=== PATIENT | male | born 1940 | race Caucasian/White ===

== ENCOUNTER 2019-08-27 09:06 | Outpatient (RCR) | payer MEDICARE, SELFPAY ==
--- NOTE | 2019-08-27 10:29 | PTOPEVAL ---
Thank you for referring this patient to [facility]. Please review, sign, date and return this plan of care JER. I agree with and certify that the following plan of care is medically necessary. Referring Physician Date Admitting Provider: Attending Provider: Marissa Mays MD Referring Provider: *PT Outpatient Evaluation Start: 08/27/19 10:01 Freq: Status: Active Protocol: Document 08/27/19 10:01 DAMIR (Rec: 08/27/19 10:24 [id number]) Therapy Assessment Status Assessment Status Assessment Status Evaluation Evaluation Information Problem Diagnosis DJD neck/neck pain Onset 08/06/19 Subjective Information Pt. reports he woke with neck Query Text:As Reported By Patient/ pain about 3 weeks ago. He Family reports worst pain with turning the head to the right. He reports no neck problems prior to the past 3 weeks. He states that pain is most notable with moving around through the day. He reports that his goal is to decrease his neck pain with movement. Diagnostic Tests X-Rays For This Problem Yes Prior Level of Function Activity Level (Last 3 Months) Hand Dominance Right Activity of Daily Living Ability Independent Indoor/Home Mobility Independent Community Mobility Independent Stairs Ability Independent Functional Cognition (Planning, Shopping Independent , Taking Medications) Cooking Yes Cleaning Yes Laundry Yes Shopping Yes Driving Yes Pain Assessment Pain Scale Pain Scale Used Numeric (1 - 10) Self Report Pain Assessment Neck Reported Pain Level 9 Pain Description Aching,Sharp Other Pain Aggravating Factors turning the head especially to the right Pain Relief Interventions Used By Inactivity/Rest,Medication Patient Pain Score Pain Score 9: Self Report Cervical and Lumbar ROM Cervical ROM Cervical Flexion (0-60) 55 Query Text:Active in Degrees Cervical Extension (0-70) 35 Query Text:Active in Degrees Cervical Lateral Flexion Right (0-50) 16 Query Text:Active in Degrees Cervical Lateral Flexion Left (0-50) 15 Query Text:Active in Degrees Cervical Rotation Right (0-90) 45 Query Text:Active in Degrees Cervical Rotation Left (0-90)
== END 2019-10-04 17:59 | disposition home or self-care (01) ==
LOC: CHSPT 09:06
PROVIDERS: Visit Provider Internal Medicine
DX: M54.2 Cervicalgia (principal); M47.892 Other spondylosis, cervical region
CPT/HCPCS: 97014; 97110; 97140; 97161; G0283

== ENCOUNTER 2019-10-16 09:56 | Outpatient (RCR) | payer SELFPAY | END 2020-01-11 10:20 | disposition home or self-care (01) | LOC: CHSCPRIII 09:56 | PROVIDERS: PCP Internal Medicine | DX: J44.9 Chronic obstructive pulmonary disease, unspecified (principal) | CPT/HCPCS: 99199 ==

== ENCOUNTER 2019-10-23 17:52 | Inpatient (IN) | payer MEDICARE, SELFPAY ==
[2019-10-23] VITALS (7 sets, daily range): BP systolic 130–159; BP diastolic 47–79; PULSE 108–130; RESP 17–28; TEMP 36.6–37.2; O2SAT 93–100
--- NOTE | ~2019-10-23 | CT_ITS ---
EXAMINATION: CTA chest DATE: 10/25/2019 13:54 INDICATION: Shortness of breath TECHNIQUE: Computed tomographic angiography (CTA) of the chest was performed without and with 100 mL Omnipque-350 intravenous contrast. Maximum intensity projection 3D-reconstructions of the aorta and o ther arteries were constructed by the technologist on a separate workstation. The dose-length product (DLP) was 726.79 mGy-cm. Automated exposure control and iterative reconstruction technique were empl oyed. COMPARISON: 11/24/2018. FINDINGS: The pulmonary arteries are well-opacified. No pulmonary embolism is identified. The lungs a re hyperinflated. There is severe emphysema. There are areas of mucous plugging in the lower lobes. A lso noted is mild bronchial wall thickening in the dependent portions of the lower lobes. A small yazan unt of mucus is seen in the distal trachea and left and right mainstem bronchi. There is no pleural e ffusion or pneumothorax. No pathologically enlarged thoracic lymph nodes are identified. The heart si ze is normal. There is calcified atherosclerosis of the aorta and coronary arteries. Severe lumbar an d cervical spondylosis are noted. There is a stable soft tissue density mass of the left adrenal glan d, consistent with an adenoma. IMPRESSION: 1. No pulmonary embolism. 2. Findings consistent with chronic infection in the lower lobes. 3. Severe emphysema. Reviewed, dictated and finalized at location A. IATIVE CARE SPECIALIST
--- NOTE | ~2019-10-23 | XR_ITS ---
EXAMINATION: XR chest 1V portable DATE: 10/23/2019 18:20 INDICATION: Respiratory failure. Shortness of breath. TECHNIQUE: frontal view of the chest was obtained on 2 radiographs. COMPARISON: Chest radiograph dated 10/10/[address] dated 11/24/2018 FINDINGS: Unchanged mild biapical pleural-parenchymal scarring. Hyperexpansion of the lungs with increased luce ncy and architectural distortion most prominent in the right lower lung zone consistent with emphysem a. Unchanged [id number] opacities at the left lung base consistent with atelectasis/scarring. No new airspace opacities, pulmonary edema, pleural effusion or pneumothorax. The cardiomediastinal silhouette is normal. Atherosclerotic aorta. IMPRESSION: 1. Emphysema with unchanged scarring at the bilateral apices and at the left lung base. Reviewed, dictated and finalized at location A. KBOOK STITCHING MACHINE OPERATOR IMPRESSION: 1. Emphysema with unchanged scarring at the bilateral apices and at the left shlomo ng base.
--- NOTE | ~2019-10-23 | XR_ITS ---
EXAMINATION: XR chest 1V portable DATE: 10/27/2019 09:46 INDICATION: Respiratory failure. Chronic obstructive pulmonary disease. TECHNIQUE: A single frontal view of the chest was obtained on 3 radiographs. COMPARISON: Chest single view 10/23/2019, chest CT 10/25/2019 FINDINGS: The lungs are hyperexpanded with lucencies and chronic interstitial opacities, consistent w ith emphysema. No pleural effusion or pneumothorax. The heart size is normal. IMPRESSION: 1. Emphysema. Reviewed, dictated and finalized at location A. WINDER IMPRESSION: 1. Emphysema.
--- NOTE | ~2019-10-23 | US_ITS ---
EXAMINATION: US carotid duplex BI DATE: 10/25/2019 11:19 INDICATION: Left carotid bruit. TECHNIQUE: Grayscale, color Doppler, and pulsed Doppler images of the cervical carotid arteries were obtained. The degree of vessel stenosis is placed in one of the following categories: normal, <50%, 5 0-69%, >=70% but less than near-occlusion, near-occlusion, or total occlusion. Note that percent sten osis relative to normal distal artery lumen diameter is indirectly measured from velocity measurement s as described by Kendrick, et al. Radiology 2003; 229:340-346. COMPARISON: Ultrasound 01/05/2017 FINDINGS: RIGHT: The right common carotid artery (CCA) peak systolic velocity (PSV) is 116 cm/s. The right internal ca rotid artery (ICA) PSV is 137 cm/s. The right ICA end-diastolic velocity (EDV) is 41 cm/s. The right ICA/CCA PSV ratio is 1.2. Grayscale and color Doppler images yield an estimate of <50% diameter reduc tion from plaque in the ICA. There is antegrade flow in the right vertebral artery. LEFT: The left CCA PSV is 106 cm/s. The left ICA PSV is 176 cm/s. The left ICA EDV is 29 cm/s. The left ICA /CCA PSV ratio is 1.7. Grayscale and color Doppler images yield an estimate of <50% diameter reductio n from plaque in the ICA. There is antegrade flow in the left vertebral artery. IMPRESSION: 1. <50% stenosis in the right internal carotid artery. 2. <50% stenosis in the left internal carotid artery. Reviewed, dictated and finalized at location A. SPOOLER
--- NOTE | 2019-10-23 18:06 | ECG_ITS ---
Measurements Intervals [place] Rate: 127 P: 87 GA: 154 QRS: 93 QRSD: 101 T: 66 QT: 270 QTc: 393 Interpretive Statements SINUS TACHYCARDIA VENTRICULAR PREMATURE COMPLEX RIGHT AXIS DEVIATION DELAYED PRECORDIAL R/S TRANSITION BASELINE ARTIFACT- I, II, III, AVR, AVL, AVF, V1-V6 ABNORMAL ECG Electronically Signed On 10-24-2019 8:07:59 NETWORK TECHNICIAN by Nicolas Wu D.O.
[2019-10-23] MEDS: methylPREDNISolone SOD SUCC 125 MG VIAL 60 MG IV PUSH (18:14)
[2019-10-23] MEDS: IPRATROPIUM BR 0.02% INH SOLN 0.5 MG/2.5 ML VIAL INHALATION (18:14)
--- NOTE | 2019-10-23 18:24 | ED.SOB ---
HPI - SOB/Dyspnea General Chief Complaint: Shortness of Breath/Dyspnea Stated Complaint: ambulance Time Seen by Provider: 10/23/19 17:55 Source: patient and EMS Mode of arrival: ambulatory Limitations: no limitations History of Present Illness HPI Narrative: 79-year-old man with a history of COPD comes in today complaining of worsening shortness breath over last for 3 days. he denies any accompanying illness but noticed an onset to his increasing short of breath. His physician called in some oral antibiotics. He has had no vomiting, diarrhea, fever, sputum production, or syncope. He states that he has got some tightness in his chest that goes to his neck but does not radiate to either of his arms. He states his last admission for lung illness was in 2018. MD elicited complaint: shortness of breath and cough Pertinent past history: COPD Onset (ago): day(s) (3) Timing: constant and progressively worsening Severity: severe Exacerbating factors: lying flat Relieving factors: upright position Known history of: COPD Associated symptoms: chest pain ( tightness ), wheezing and orthopnea Treatment prior to arrival: oxygen and bronchodilator Related Data Home oxygen amount: 2 liters Home Medications Medication Instructions Recorded Confirmed albuterol sulfate 2 puff INHALATION PRN 10/23/19 10/23/19 cefdinir 300 mg PO BID 10/23/19 10/23/19 celecoxib 200 mg PO DAILY 10/23/19 10/23/19 furosemide 40 mg PO DAILY 10/23/19 10/23/19 lisinopril-hydrochlorothiazide 0.5 tablet PO DAILY 10/23/19 10/23/19 lovastatin 20 mg PO HS 10/23/19 10/23/19 omeprazole 20 mg PO DAILY 10/23/19 10/23/19 sildenafil 20 mg PO TID 10/23/19 10/23/19 zolpidem 10 mg PO DAILY 10/23/19 10/23/19 Allergies Allergy/AdvReac Type Severity Reaction Status Date / Time No Known Allergies Allergy Verified 10/23/19 18:07 Review of Systems Constitutional: Constitutional: Denies chills, Denies fever(s) and Denies weakness Eyes: Eyes: Denies change in vision and Denies photophobia ENT: Denies dysphagia, Denies nasal congestion and Denies sore throat Cardiovascular: Cardiovascular: Reports as per HPI, Reports chest pain (Tightness radiating to his neck) and Reports radiating jaw, neck or arm pain Respiratory: Respiratory: Reports as per HPI, Reports chest congestion, Reports cough, Reports dyspnea and Reports wheezing Gastrointestinal: Gastrointestinal: Denies abdominal pain, Denies diarrhea, Denies nausea and Denies vomiting Genitourinary: Genitourinary: Denies dysuria and Denies urinary frequency Musculoskeletal: Musculoskeletal: Denies back pain, Denies arthralgias, Denies joint swelling and Denies muscle cramps Integumentary/Breasts: Skin/Breast: Denies pruritus, Denies erythema and Denies rash Neurologic: Denies vertigo, Denies dizziness and Denies syncope Psychiatric: Psychiatric: Denies anxiety and Denies depression Endocrine: Endocrine: Denies polydipsia and Denies polyuria Hematologic/Lymphatic: Hematologic/Lymphatic: Denies easy bleeding and Denies easy bruising Allergic/Immunologic: Allergic/Immunologic: Denies lip swelling and Denies wheezing PMFSH Past Medical History Medical History CHF (congestive heart failure) COPD (chronic obstructive pulmonary disease) GERD (gastroesophageal reflux disease) HTN (hypertension) Hyperlipidemia Social History Social History Smoking status: Former smoker Alcohol intake: never Substance use: never Living arrangements: with family Occupation/Education: retired Exam Const: General: alert Nutritional Appearance: thin Orientation/consciousness: patient oriented x3 Limitations: no limitations Other: Mod-severe acute distress HENMT: Ears: TM's normal bilaterally and EAC's normal Mouth: Yes Normal oral and palatal mucosa present, Yes moist mucous membranes and Yes dry mucous membrane
[2019-10-23 18:53] LABS: Oxygen Content ABG 19.1 %vol (16.0-22.0); Oxyhemoglobin 94.8 % (94-100)
[2019-10-23 18:53] LABS: Basophils Absolute Auto 0.02 K/mm3 (0.00-0.10); Basophils Percent Auto 0.3 % (0.0-1.0); Eosinophils Absolute Auto 0.02 K/mm3 (0.02-0.50); Eosinophils Percent Auto 0.3 % (1.0-6.0); Hemoglobin 14.2 g/dL (12.4-15.3); Immature Granulocyte Absolute 0.01 K/mm3 (0.00-0.00); Immature Granulocyte Percent A 0.1 % (0.0-0.0); Lymphocytes Absolute Auto 0.52 K/mm3 (1.10-4.50); Lymphocytes Percent Auto 7.2 % (18.0-42.0); Mean Corpuscular Hemoglobin 31.2 pg (27.0-31.0); Mean Corpuscular Volume 94.5 fL (78.0-102.0); Mean Platelet Volume 10.3 fl (8.7-11.0); Monocytes Absolute Auto 0.58 K/mm3 (0.10-0.90); Monocytes Percent Auto 8.1 % (2.0-11.0); Platelet Count Result 147 K/mm3 (150-420); Red Blood Count 4.55 M/mm3 (4.70-6.10); Red Cell Distribution Width 11.9 % (11.6-14.4); White Blood Count 7.2 K/mm3 (4.8-10.8)
[2019-10-23 18:54] LABS: Base Excess ABG 2.6 mmol/L (0-2); Oxygen Saturation ABG 95.8 % (95-97); PCO2 ABG 57.8 mmHg (35-45); PO2 ABG 82.7 mmHg (75-85); Total Hemoglobin 14.3 g/dL; pH ABG 7.33 (7.35-7.45)
[2019-10-23 18:55] LABS: Device NASAL CANNULA; Site Drawn RIGHT BRACHIAL
[2019-10-23 19:24] LABS: Alanine Aminotransferase 24 U/L (16-63); Albumin Level 4.1 g/dL (3.4-5.0); Alkaline Phosphatase 81 U/L (46-116); Anion Gap 10.8 mmol/L (7-16); Aspartate Amino Transferase 29 U/L (15-37); Bilirubin,Total 0.4 mg/dL (0.00-1.00); Blood Urea Nitrogen 15 mg/dL (7-18); Calcium 8.9 mg/dL (8.5-10.1); Carbon Dioxide 37 mmol/L (21-32); Chloride 90 mmol/L (98-108); Estimated CRCL calculation 47 ml/min; Estimated Glomerular Filt Rate > 60; Glucose 130 mg/dL (70-99); Osmolality Calculated 280 mOsm/kg (285-295); Potassium 3.8 mmol/L (3.5-5.1); Sodium 134 mmol/L (136-145); Total Protein 7.9 g/dL (6.4-8.2)
[2019-10-23 19:26] LABS: Troponin I < 0.02 ng/mL (0.00-0.056)
[2019-10-23 19:30] LABS: Partial Thromboplastin Time 32.9 SEC (22.3-31.6); Prothrombin Time 10.7 Seconds (9.64-11.0)
[2019-10-23 19:33] LABS: D Dimer 0.56 mg/L (0.19-0.50)
[2019-10-23 19:37] LABS: Influenza Control Valid (Valid)
[2019-10-23 19:40] LABS: BNP 15.8 pg/mL (0-100)
--- NOTE | 2019-10-23 20:25 | PC.NURSE ---
RN REQUESTED OBS BED AT THIS TIME. ROOM 208 PROVIDED. REGISTRATION NOTIFIED.
--- NOTE | 2019-10-23 20:32 | PC.NURSE ---
RN ATTEMPTED TO CALL REPORT. ACCEPTING RN NOT AVAILABLE.
--- NOTE | 2019-10-23 20:59 | PC.NURSE ---
LA, MOE RN, INFORMED OF THE NEED FOR URINE SAMPLE. LABELED URINE CUP BROUGHT TO ROOM 208 WITH PT BELONGINGS, CHART, BP CUFF, AND NEB SUPPLIES. RN ATTEMPTED TO COLLECT URINE SAMPLE PRIOR TO LEAVING ROOM 208 BUT PT WAS UNABLE TO URINATE. CASEY TOVAR AWARE.
--- NOTE | 2019-10-23 22:00 | PC.NURSE ---
Patient SOB @ rest, worsening with any activity. O2 on @ 3 lpm/lnc. Patient SOB with talking. Patient also appears anxious. Patient's daughter brought shorts and a short sleeved shirt for patient to change into and he insisted on changing as soon as she got here with it and his breathing had started to improve and then worsened again when he changed clothes. Once patient finished and sat back on the bed and relaxed his respirations eased.
[2019-10-23] MEDS: IPRATROPIUM 0.5 MG/ALBUTEROL SULFATE 2.5 MG AMPUL.NEB 3 ML INHALATION (22:07)
[2019-10-23] MEDS: LOVASTATIN 20 MG TABLET PO (22:08)
[2019-10-23] MEDS: ZOLPIDEM TARTRATE 5 MG TABLET 10 MG PO (22:08)
--- NOTE | 2019-10-23 22:20 | PC.NURSE ---
Patient continues to appear and admits to being anxious. O2 continues @ 3 lpm/nc and SpO2 ranging from 93-97%. Charge nurse notified of patient being anxious. Patient took HS meds without difficulty. Family leaving.
--- NOTE | 2019-10-23 22:30 | PC.NURSE ---
Patient given his Duoneb early per nursing judgement due to his continues SOB. Patient says the Duoneb has helped some.
--- NOTE | 2019-10-23 22:53 | PC.NURSE ---
notified of patient's anxiety. No new orders received.
[2019-10-23 23:05] LABS: Add Urine Microscopic? YES; Appearance Urine Clear (Clear); Bilirubin Urine Negative (Negative); Blood Urine 1+ (Negative); Color Urine Yellow (Yellow); Glucose Urine UA Negative (Negative); Ketones Urine 1+ (Negative); Leukocyte Esterase Ur Negative LEU/UL (Negative); Nitrate Urine Negative (Negative); Protein Urine Trace (Negative); Specific Grav Ur 1.025 (1.010-1.020); Urobilinogen Urine 0.2 mg/dL (0.2-1.0)
--- NOTE | 2019-10-23 23:10 | PC.NURSE ---
Patient resting in bed. Respirations have eased. Patient says his sleeping pill is kicking in and he's starting to feel more relaxed. O2 continues @ 3 lpm/nc. Patient denies SOB @ this time. Call light in reach.
[2019-10-23 23:13] LABS: Bacteria Urine Trace /hpf; Mucus Urine Few /lpf; Squamous Epithelial Cell Urine Rare /hpf (Few); WBC Urine 0-3 /hpf (0-3)
[2019-10-23 23:57] LABS: Troponin I 0.02 ng/mL (0.00-0.056)
[2019-10-24] VITALS (25 sets, daily range): BP systolic 116–148; BP diastolic 41–69; PULSE 80–122; RESP 16–28; TEMP 35.9–36.8; O2SAT 90–97
--- NOTE | 2019-10-24 00:05 | PC.NURSE ---
Patient was sleeping but awakened easily for VS. Respirations even and unlabored @ this time. O2 continues @ 3 lpm/nc. Patient denies pain/complaints/needs @ this time. Call light in reach.
[2019-10-24] MEDS: ALBUTEROL SULFATE NEB 2.5 MG/3 ML INH INHALATION (00:07)
--- NOTE | 2019-10-24 00:22 | ADMGEN ---
This patient, Taz Ambrocio, was admitted to 2nd Floor Room 208-2. Patient/family oriented to hospital policies and general routines including ID bracelet, bed and alarms, visiting hours, pain management, procedures, bathroom and other care routines, personal items, smoking policy, room service/diet, and visiting hours. Information on how to activate the Rapid Response Team has been discussed. Patient/Family are encouraged to report perceived risks to care and to ask questions if they do not understand what they are told or what they should do.
--- NOTE | 2019-10-24 01:10 | PC.NURSE ---
Patient appears to be sleeping by the rise and fall of his chest. Respirations even and unlabored. O2 continues @ 3 lpm/nc. No distress noted. Call light in reach.
--- NOTE | 2019-10-24 02:18 | PC.NURSE ---
Patient appears to be sleeping by the rise and fall of his chest. O2 on @ 3 lpm/nc. Respirations even and unlabored. No distress noted. Call light in reach.
--- NOTE | 2019-10-24 03:10 | PC.NURSE ---
Patient appears to be sleeping by the rise and fall of his chest. Respirations even and unlabored. No distress noted. Call light in reach.
--- NOTE | 2019-10-24 04:30 | PC.NURSE ---
Patient needing to urinate. Assisted patient to stand at side of bed to use urinal and he was unable to urinate. Patient passing gas and said he thinks his bowels need to move. Patient already SOB just from standing @ side of bed. Portable O2 connected and set @ 4 lpm/nc. Patient ambulated to bathroom/toilet and was very SOB. Patient sat for approximately 5 minutes but couldn't move his bowels. Patient did urinate in toilet. Patient then stood @ sink and washed his face and hands and put his dentures in. Patient ambulated back to bed, still on O2 @ 4 lpm and was still very SOB. Throughout using bathroom patient's SpO2 stayed 91-93%. When patient ambulating back to bed his SpO2 dropped to 88% but he recovered to 93% quickly. Patient sitting @ side of bed watching tv. O2 continued @ 3 lpm/nc. SpO2 staying in mid 90's. Call light in reach.
--- NOTE | 2019-10-24 05:03 | PC.NURSE ---
Patient back in bed watching tv. O2 @ 3 lpm/nc with SpO2 @ 95%. Respirations non-labored. Patient denies SOB and none noted. Call light in reach.
[2019-10-24] MEDS: IPRATROPIUM 0.5 MG/ALBUTEROL SULFATE 2.5 MG AMPUL.NEB 3 ML INHALATION ×4 (05:35→23:02)
[2019-10-24 05:40] LABS: Hematocrit 42.5 % (37.0-46.0); Hemoglobin 14.1 g/dL (12.4-15.3); Immature Granulocyte Absolute 0.03 K/mm3 (0.00-0.00); Immature Granulocyte Percent A 0.6 % (0.0-0.0); Lymphocytes Absolute Auto 0.16 K/mm3 (1.10-4.50); Lymphocytes Percent Auto 3.2 % (18.0-42.0); Mean Corpuscular HGB Conc 33.2 g/dL (32.0-36.0); Mean Corpuscular Hemoglobin 31.4 pg (27.0-31.0); Mean Corpuscular Volume 94.7 fL (78.0-102.0); Mean Platelet Volume 10.3 fl (8.7-11.0); Monocytes Absolute Auto 0.22 K/mm3 (0.10-0.90); Monocytes Percent Auto 4.4 % (2.0-11.0); Neutrophils Absolute Auto 4.6 K/mm3 (1.7-7.2); Neutrophils Percent Auto 91.8 % (50.0-70.0); Platelet Count Result 164 K/mm3 (150-420); Red Blood Count 4.49 M/mm3 (4.70-6.10); Red Cell Distribution Width 11.9 % (11.6-14.4)
[2019-10-24 05:59] LABS: Blood Urea Nitrogen 18 mg/dL (7-18); Calcium 9.4 mg/dL (8.5-10.1); Carbon Dioxide 39 mmol/L (21-32); Chloride 89 mmol/L (98-108); Estimated CRCL calculation 43 ml/min; Estimated Glomerular Filt Rate > 60; Glucose 138 mg/dL (70-99); Osmolality Calculated 285 mOsm/kg (285-295); Sodium 136 mmol/L (136-145)
[2019-10-24 06:05] LABS: Troponin I < 0.02 ng/mL (0.00-0.056)
--- NOTE | 2019-10-24 06:15 | PC.NURSE ---
Patient sitting up in bed watching tv. O2 continues @ 3 lpm/nc. Denies SOB but hasnt been out of bed any more. Denies pain/complaints/needs @ this time. No distress noted. Call light in reach.
[2019-10-24] MEDS: methylPREDNISolone SOD SUCC 40 MG VIAL IV PUSH ×2 (09:28→16:37)
[2019-10-24] MEDS: lisinopriL 10 MG TABLET PO (09:29)
[2019-10-24] MEDS: hydroCHLOROthiazide 12.5 MG CAPSULE PO (09:29)
[2019-10-24] MEDS: CELECOXIB 100 MG CAPSULE 200 MG PO (09:29)
[2019-10-24] MEDS: FUROSEMIDE 40 MG TABLET PO (09:29)
[2019-10-24] MEDS: PANTOPRAZOLE 40 MG TABLET PO (09:30)
[2019-10-24 10:05] LABS: Magnesium 1.7 mg/dL (1.8-2.4); Phosphorus 3.9 mg/dL (2.6-4.7)
[2019-10-24] MEDS: MAGNESIUM SULF 2 GM/WATER 50ML 2 GM/50 ML BAG IVPB (13:34)
--- NOTE | 2019-10-24 13:53 | PM.IMHP ---
H&P: HPI History of Present Illness Chief complaint: ambulance <Génesis Guerra NP - Last Filed: 10/24/19 18:08> Narrative: Taz Ambrocio is a 79 year old male admitted via ambulance with worsening SOB, dyspnea and runny nose with congestion. He stated that he started feeling worse and more SOB on evening, approximately 5-6 days ago, but did not call his Civil Drafter Dr. Wallis. He has been coughing, but it is nonproductive at this time. He also denies any known fevers or chills at home. He does admit to some sinus congestion and upper airway wheezing at home, but felt like his breathing treatments helped control the wheezing. He is feeling more and more SOB, then gets anxious, feels almost like he is having a panic attack , his heart rate gets higher, and then his SOB gets even worse. He is only able to remain upright and feels like he cannot breath lying down. He admits to chest pain ( tightness ), wheezing and orthopnea. He denies having a CPAP or BIPAP machine at home for JAMMIE. He has been using his oxgyen and bronchodilator at home. He uses 2 L typically, but has been trying 3 L in the last few days with no relief. He has a known significant COPD history. He denies any accompanying illness but noticed an onset to his increasing short of breath. His primary care physician called in some oral antibiotics. He has had no vomiting, diarrhea, fever, sputum production, or syncope. He states that he has got some tightness in his chest that goes to his neck but does not radiate to either of his arms. He states his last admission for lung illness was in 2018. He has been getting a full respiratory and cardiac workup at [facility] due to him preparing for lung reduction surgery. <Génesis Guerra NP - Last Filed: 10/24/19 18:08> Review of Systems Constitutional: Constitutional: Denies chills, Denies fever(s) and Denies weakness <Génesis Guerra NP - Last Filed: 10/24/19 18:08> Eyes: Eyes: Denies change in vision and Denies photophobia <Génesis Guerra NP - Last Filed: 10/24/19 18:08> ENT: Denies dysphagia, Denies vertigo, Denies dizziness, Denies lip swelling, Denies nasal congestion and Denies sore throat <Génesis Guerra ASSOCIATE FINANCIAL PLANNER - Last Filed: 10/24/19 18:08> Cardiovascular: Cardiovascular: Reports as per HPI, Reports chest pain (Tightness radiating to his neck), Denies syncope, Reports radiating jaw, neck or arm pain and Reports dyspnea <Génesis Guerra ASSOCIATE FINANCIAL PLANNER - Last Filed: 10/24/19 18:08> Respiratory: Respiratory: Reports as per HPI, Reports chest congestion, Reports cough, Reports dyspnea and Denies wheezing <Génesis Guerra, ASSOCIATE FINANCIAL PLANNER - Last Filed: 10/24/19 18:08> Gastrointestinal: Gastrointestinal: Denies abdominal pain, Denies dysphagia, Denies diarrhea, Denies nausea and Denies vomiting <Génesis Guerra, ASSOCIATE FINANCIAL PLANNER - Last Filed: 10/24/19 18:08> Genitourinary: Genitourinary: Denies dysuria and Denies urinary frequency <Génesis Guerra ASSOCIATE FINANCIAL PLANNER - Last Filed: 10/24/19 18:08> Musculoskeletal: Musculoskeletal: Denies back pain, Denies arthralgias, Denies joint swelling and Denies muscle cramps <Génesis Guerra, ASSOCIATE FINANCIAL PLANNER - Last Filed: 10/24/19 18:08> Integumentary/Breasts: Skin/Breast: Denies pruritus, Denies erythema and Denies rash <Génesis Guerra, ASSOCIATE FINANCIAL PLANNER - Last Filed: 10/24/19 18:08> Neurologic: Denies vertigo, Denies dizziness, Denies syncope and Denies weakness <Génesis Guerra ASSOCIATE FINANCIAL PLANNER - Last Filed: 10/24/19 18:08> Psychiatric: Psychiatric: Denies anxiety and Denies depression <Génesis Guerra, ASSOCIATE FINANCIAL PLANNER - Last Filed: 10/24/19 18:08> Endocrine: Endocrine: Denies polydipsia and Denies polyuria <Génesis Guerra, ASSOCIATE FINANCIAL PLANNER - Last Filed: 10/24/19 18:08> Hematologic/Lymphatic: Hematologic/Lymphatic: Denies easy bleeding and Denies easy bruising <Génesis Guerra, ASSOCIATE FINANCIAL PLANNER - Last Filed: 10/24/19 18:08> Allergic/Immunologic: Allergic/Immunologic: Denies lip swelling and Denies wheezing <Génesis L. Guerra, ASSOCIATE FINANCIAL PLANNER - Last Filed: 10/24/19 18:08> [facility] Past Medical History Medical H
[2019-10-24] MEDS: SILDENAFIL CITRATE 20 MG TABLET PO (16:37)
[2019-10-24] MEDS: MAGNESIUM OXIDE 400 MG TABLET PO (16:37)
--- NOTE | 2019-10-24 16:43 | PC.NURSE ---
pt has brought in his bp meds, has his omeprazole but they are loose in a plastic bag, is going to go home and get labelled bottle and bring them back, pt sitting up in bed
[2019-10-24] MEDS: DIAZEPAM 5 MG TABLET PO (19:18)
[2019-10-24] MEDS: FLUTICASONE PROPIONATE 0.05% NA SPR 16 GM BTL (*BKC) 2 SPRAY NASAL (20:59)
[2019-10-24] MEDS: ZOLPIDEM TARTRATE 5 MG TABLET 10 MG PO (21:00)
[2019-10-24] MEDS: FAMOTIDINE 20 MG TABLET PO (21:01)
[2019-10-24] MEDS: LOVASTATIN 20 MG TABLET PO (21:01)
--- NOTE | 2019-10-24 22:29 | PC.NURSE ---
pt having trouble breathing, 02 turned up to 3.5L, charge nurse notified, iv flushed
[2019-10-25] VITALS (20 sets, daily range): BP systolic 115–173; BP diastolic 50–77; PULSE 100–118; RESP 20–28; TEMP 36.1–37.2; O2SAT 93–97
--- NOTE | 2019-10-25 02:09 | PC.NURSE ---
Pt asleep on hourly rounds, head of bed elevated. O2 continues.
[2019-10-25] MEDS: IPRATROPIUM 0.5 MG/ALBUTEROL SULFATE 2.5 MG AMPUL.NEB 3 ML INHALATION ×6 (02:50→21:15)
--- NOTE | 2019-10-25 03:27 | PC.NURSE ---
Pt voided in urinal. Shortnessd of breath with exertion. No cough before or after RT TX.
--- NOTE | 2019-10-25 03:33 | PC.NURSE ---
O2 continues per nc. Head of bed elevated.
--- NOTE | 2019-10-25 06:18 | PC.NURSE ---
Resting quietly, eyes closed. Head of bed elevated. Needed objects in reach. O2 continues.
[2019-10-25] MEDS: IPRATROPIUM 0.5 MG/ALBUTEROL SULFATE 2.5 MG AMPUL.NEB 3 ML (07:05)
[2019-10-25] MEDS: methylPREDNISolone SOD SUCC 40 MG VIAL IV PUSH (08:54)
[2019-10-25] MEDS: hydroCHLOROthiazide 12.5 MG CAPSULE PO (08:54)
[2019-10-25] MEDS: MAGNESIUM OXIDE 400 MG TABLET PO ×2 (08:54→16:53)
[2019-10-25] MEDS: lisinopriL 10 MG TABLET PO (08:54)
[2019-10-25] MEDS: SILDENAFIL CITRATE 20 MG TABLET PO ×3 (08:54→16:53)
[2019-10-25] MEDS: CELECOXIB 100 MG CAPSULE 200 MG PO (08:54)
[2019-10-25] MEDS: PANTOPRAZOLE 40 MG TABLET PO (08:54)
[2019-10-25] MEDS: FAMOTIDINE 20 MG TABLET PO (08:54)
[2019-10-25] MEDS: BENZONATATE 100 MG CAPSULE 200 MG PO ×3 (08:54→16:53)
[2019-10-25] MEDS: FUROSEMIDE 40 MG TABLET PO (08:55)
[2019-10-25] MEDS: FLUTICASONE PROPIONATE 0.05% NA SPR 16 GM BTL (*BKC) 2 SPRAY NASAL ×2 (09:00→20:59)
[2019-10-25 10:23] LABS: Hematocrit 39.9 % (37.0-46.0); Hemoglobin 13.6 g/dL (12.4-15.3); Mean Corpuscular HGB Conc 34.1 g/dL (32.0-36.0); Mean Corpuscular Hemoglobin 32.2 pg (27.0-31.0); Mean Corpuscular Volume 94.3 fL (78.0-102.0); Platelet Count Result 163 K/mm3 (150-420); Red Blood Count 4.23 M/mm3 (4.70-6.10); Red Cell Distribution Width 11.7 % (11.6-14.4); White Blood Count 7.8 K/mm3 (4.8-10.8)
--- NOTE | 2019-10-25 13:06 | PM.IMPN ---
Progress Note: A&P Assessment and Plan (1) GERD (gastroesophageal reflux disease): Code(s): K21.9 - Gastro-esophageal reflux disease without esophagitis Status: Acute Assessment and Plan: Stable and resolved continue Protonix, Tums and Pepcid (2) COPD (chronic obstructive pulmonary disease): Code(s): J44.9 - Chronic obstructive pulmonary disease, unspecified Status: Acute Assessment and Plan: continue prednisone, antibiotic and breathing treatments patient uses home O2 continue the use of supplement oxygen continue Mucinex, Tesselon Pearls, Flonase, discontinued Cefdinir (recieved rx from PCP and took 5-6 doses with no improvement at home) continue home dosing of Sildenafil for severe pulmonary HTN, furosemide for CHF/edema, (3) Acute chronic obstructive pulmonary disease with respiratory distress: Code(s): J44.9 - Chronic obstructive pulmonary disease, unspecified; R06.03 - Acute respiratory distress Status: Acute Assessment and Plan: secondary to COPD admitted with continous telemetry monitoring and continuous pulse oximetry monitoring. Influ swab negative. continue supplement oxygen, neb treatments, cough suppressant, decongested and Flonase started low dose Valium in Ativan continue steroids and antibiotics currently needing 2-3 LPM here per continuous pulse oximetry monitoring continue home dosing of Sildenafil for severe pulmonary HTN, furosemide for CHF/edema, (4) Tachycardia: Code(s): R00.0 - Tachycardia, unspecified Status: Acute Assessment and Plan: possibly related to dehydration or anxiety or respiratory distress or nebulizer medications or panic attack like s/s or GERD discomfort nursing to encourage oral hydration Trops x 3 WNL started low dose Valium and Ativan p.r.n. EKG at admission with Sinus Tach and PVCs. CXR shows emphysema unchanged with scarring at bilateral apices and the LLL base. (5) Degenerative disc disease, cervical: Code(s): M50.30 - Other cervical disc degeneration, unspecified cervical region Status: Acute Assessment and Plan: neck xray showed severe degenerative disc disease at C5-C6 and C6-C7 may use Lidocaine patches, heating pad, ice packs, needs to F/U with Orthopedic Surgeon and Pain Management physician (6) Carotid stenosis: Code(s): I65.29 - Occlusion and stenosis of unspecified carotid artery Status: Acute Assessment and Plan: audible left carotid bruit with ausculation ordered bilateral carotid doppler patient stated that he had a past left endarectomy but had not had follow up US studies in over 2 years. Subjective Date/time seen: 10/25/19 13:06 during this assessment Mr. Jacome appeared to be short of breath with labored breathing. According to his daughter when he ambulates his shortness of breath worsened. He also noted he is more anxious than usual. We will complete a CTA to rule out a PE ,his D-dimer was slightly elevated. I will also add Ativan for his anxiety. I contacted Dr. Wallis ,patient's computer forwarding system markup clerk recommendation. Dr. Wallis recommended that we continue our treatment plan. Patient also has a future CT and pulmonary function test, we will complete the CT, per Dr. Wallis he will complete the pulmonary function test at a later time when he is more stable. Patient denies , CP, palpitation, extremity numbness, lightheadness, dizziness, constipation, diarrhea, or chills or fever. Review of Systems Constitutional: Constitutional: Denies chills, Denies fever(s) and Denies weakness Eyes: Eyes: Denies change in vision and Denies photophobia ENT: Denies dysphagia, Denies vertigo, Denies dizziness, Denies lip swelling, Denies nasal congestion and Denies sore throat Cardiovascular: Cardiovascular: Reports as per HPI, Reports chest pain (Tightness radiating to his neck), Denies syncope, Reports radiating jaw, neck or arm criss
[2019-10-25] MEDS: DIAZEPAM 5 MG TABLET PO (19:27)
[2019-10-25] MEDS: LOVASTATIN 20 MG TABLET PO (21:00)
[2019-10-25] MEDS: ZOLPIDEM TARTRATE 5 MG TABLET 10 MG PO (21:01)
[2019-10-25] MEDS: LORAZEPAM INJ 2 MG/ML VIAL 0.5 MG IV PUSH (21:15)
[2019-10-26] VITALS (20 sets, daily range): BP systolic 118–135; BP diastolic 50–93; PULSE 77–122; RESP 18–24; TEMP 36.2–36.4; O2SAT 74–100
[2019-10-26] MEDS: IPRATROPIUM 0.5 MG/ALBUTEROL SULFATE 2.5 MG AMPUL.NEB 3 ML INHALATION ×6 (02:41→21:52)
[2019-10-26] MEDS: ACETYLCYSTEINE 20% INHAL SOLN 800 MG/4 ML VIAL 600 MG PO (05:58)
[2019-10-26] MEDS: LORAZEPAM INJ 2 MG/ML VIAL 0.5 MG IV PUSH (06:20)
--- NOTE | 2019-10-26 06:26 | PC.NURSE ---
Pt is very anxious after completing his breathing treatments, medication given see MAR
--- NOTE | 2019-10-26 07:25 | PHAR ---
10/25/19 - [facility] verified pt.'s home med omeprazole. tls
[2019-10-26 08:59] LABS: Hematocrit 42.9 % (37.0-46.0); Hemoglobin 14.3 g/dL (12.4-15.3); Mean Corpuscular HGB Conc 33.3 g/dL (32.0-36.0); Mean Corpuscular Hemoglobin 31.6 pg (27.0-31.0); Mean Corpuscular Volume 94.7 fL (78.0-102.0); Mean Platelet Volume 9.9 fl (8.7-11.0); Platelet Count Result 170 K/mm3 (150-420); Red Blood Count 4.53 M/mm3 (4.70-6.10); Red Cell Distribution Width 11.7 % (11.6-14.4); White Blood Count 11.9 K/mm3 (4.8-10.8)
[2019-10-26 09:17] LABS: Alanine Aminotransferase 44 U/L (16-63); Albumin Level 3.7 g/dL (3.4-5.0); Alkaline Phosphatase 67 U/L (46-116); Anion Gap 4.4 mmol/L (7-16); Aspartate Amino Transferase 64 U/L (15-37); Bilirubin,Total 0.4 mg/dL (0.00-1.00); Blood Urea Nitrogen 23 mg/dL (7-18); Chloride 84 mmol/L (98-108); Estimated CRCL calculation 50 ml/min; Estimated Glomerular Filt Rate > 60; Glucose 111 mg/dL (70-99); Osmolality Calculated 272 mOsm/kg (285-295); Potassium 4.4 mmol/L (3.5-5.1); Sodium 129 mmol/L (136-145); Total Protein 7.2 g/dL (6.4-8.2)
[2019-10-26] MEDS: ACETYLCYSTEINE 20% INHAL SOLN 800 MG/4 ML VIAL 600 MG INHALATION ×2 (09:17→18:54)
[2019-10-26 09:30] LABS: Carbon Dioxide 43 mmol/L (21-32)
[2019-10-26] MEDS: SILDENAFIL CITRATE 20 MG TABLET PO ×3 (10:56→17:23)
[2019-10-26] MEDS: METOPROLOL SUCCINATE EXT REL 12.5 MG TABCR 6.25 MG PO (10:56)
[2019-10-26] MEDS: FLUTICASONE PROPIONATE 0.05% NA SPR 16 GM BTL (*BKC) 2 SPRAY NASAL ×2 (10:56→20:47)
[2019-10-26] MEDS: FAMOTIDINE 20 MG TABLET PO ×2 (10:57→20:48)
[2019-10-26] MEDS: MAGNESIUM OXIDE 400 MG TABLET PO ×2 (10:57→17:23)
[2019-10-26] MEDS: BENZONATATE 100 MG CAPSULE 200 MG PO ×3 (10:57→17:22)
[2019-10-26] MEDS: lisinopriL 10 MG TABLET PO (10:57)
[2019-10-26] MEDS: FUROSEMIDE 40 MG TABLET PO (10:57)
[2019-10-26] MEDS: CELECOXIB 100 MG CAPSULE 200 MG PO (10:57)
[2019-10-26] MEDS: hydroCHLOROthiazide 12.5 MG CAPSULE PO (10:58)
[2019-10-26] MEDS: LORAZEPAM 0.5 MG TABLET PO (13:32)
--- NOTE | 2019-10-26 13:59 | PM.IMPN ---
Progress Note: A&P Assessment and Plan (1) GERD (gastroesophageal reflux disease): Code(s): K21.9 - Gastro-esophageal reflux disease without esophagitis <ELLIOT Castillo - Last Filed: 10/26/19 14:09> Status: Acute <ELLIOT Castillo - Last Filed: 10/26/19 14:09> Assessment and Plan: Stable and resolved continue Protonix, Tums and Pepcid <ELLIOT Castillo - Last Filed: 10/26/19 14:09> (2) COPD (chronic obstructive pulmonary disease): Code(s): J44.9 - Chronic obstructive pulmonary disease, unspecified <ELLIOT Castillo - Last Filed: 10/26/19 14:09> Status: Acute <ELLIOT Castillo - Last Filed: 10/26/19 14:09> Assessment and Plan: continue prednisone, antibiotic and breathing treatments patient uses home O2 continue the use of supplement oxygen continue Mucinex, Tesselon Pearls, Flonase, discontinued Cefdinir (recieved rx from PCP and took 5-6 doses with no improvement at home) continue home dosing of Sildenafil for severe pulmonary HTN, furosemide for CHF/edema, <ELLIOT Castillo - Last Filed: 10/26/19 14:09> (3) Acute chronic obstructive pulmonary disease with respiratory distress: Code(s): J44.9 - Chronic obstructive pulmonary disease, unspecified; R06.03 - Acute respiratory distress <ELLIOT Castillo - Last Filed: 10/26/19 14:09> Status: Acute <ELLIOT Castillo - Last Filed: 10/26/19 14:09> Assessment and Plan: secondary to COPD admitted with continous telemetry monitoring and continuous pulse oximetry monitoring. Influ swab negative. continue supplement oxygen, neb treatments, cough suppressant, decongested and Flonase started low dose Valium in Ativan continue steroids and antibiotics currently needing 2-3 LPM here per continuous pulse oximetry monitoring continue home dosing of Sildenafil for severe pulmonary HTN, furosemide for CHF/edema, <ELLIOT Castillo - Last Filed: 10/26/19 14:09> (4) Tachycardia: Code(s): R00.0 - Tachycardia, unspecified <ELLIOT Castillo - Last Filed: 10/26/19 14:09> Status: Acute <ELLIOT Castillo - Last Filed: 10/26/19 14:09> Assessment and Plan: possibly related to dehydration or anxiety or respiratory distress or nebulizer medications or panic attack like s/s or GERD discomfort highest heart rate today between 120 and 140 nursing to encourage oral hydration Trops x 3 WNL started low dose Valium and Ativan p.r.n. also started Cardizem EKG at admission with Sinus Tach and PVCs. CXR shows emphysema unchanged with scarring at bilateral apices and the LLL base. <ELLIOT Castillo - Last Filed: 10/26/19 14:09> (5) Degenerative disc disease, cervical: Code(s): M50.30 - Other cervical disc degeneration, unspecified cervical region <ELLIOT Castillo - Last Filed: 10/26/19 14:09> Status: Acute <ELLIOT Castillo - Last Filed: 10/26/19 14:09> Assessment and Plan: neck xray showed severe degenerative disc disease at C5-C6 and C6-C7 may use Lidocaine patches, heating pad, ice packs, needs to F/U with Orthopedic Surgeon and Pain Management physician <ELLIOT Castillo - Last Filed: 10/26/19 14:09> (6) Carotid stenosis: Code(s): I65.29 - Occlusion and stenosis of unspecified carotid artery <ELLIOT Castillo - Last Filed: 10/26/19 14:09> Status: Acute <ELLIOT Castillo - Last Filed: 10/26/19 14:09> Assessment and Plan: audible left carotid bruit with ausculation ordered bilateral carotid doppler less than 50% stenosis right and left patient stated that he had a past left endarectomy but had not had follow up US studies in over 2 years. <ELLIOT Castillo - Last Filed: 10/26/19 14:09> Subjective Date/time seen: 10/26/19 13:59 received repo
--- NOTE | 2019-10-26 19:20 | PC.NURSE ---
charge nurse reports pt has entered v tach on monitor, pt is at 43% on 3.5L nc, venti bag applied at 11L, rapid response called, dr and er nurse arrive, pt placed on monitor in room, cont pulse ox, pt back up to 100% on 5L nc, duoneb and mucomyst given per emmie vaughn
--- NOTE | 2019-10-26 20:17 | PM.EVENT ---
Event Note Event Note Event Note: I was called to the room for patient having acute shortness of breath. Nurse reported he had a short run of V-tach consisting of approximately 20 beats. Patient complaining that he could not breathe. He denied any chest pain nausea vomiting diaphoresis. On arrival low O2 sat in the 40s to 50s. Patient put on a 10 L non-rebreather mask and was significantly improved. Due to his cool extremities O2 sat monitor placed on his ear which was more accurate showing that he improved to 100%. He was placed on monitoring and evaluation advisor which showed sinus tach. He is admitted for severe COPD. He was just about to be given a DuoNeb with Mucomyst. This will be given and he will be continued to be monitored. I checked in on him again 10 minutes later and he said he is significantly improved. I weaned him down to 5 L nasal cannula and he continued to remain stable. During this event I examined him he had tachycardia without any irregular rhythm. Lungs showed short air exchange with scattered wheezes throughout the posterior swain.
[2019-10-26] MEDS: ZOLPIDEM TARTRATE 5 MG TABLET 10 MG PO (20:48)
[2019-10-26] MEDS: LOVASTATIN 20 MG TABLET PO (20:49)
--- NOTE | 2019-10-26 23:59 | PC.NURSE ---
Resting quietly. O2 continues per NC. Head of bed elevated.
[2019-10-27] VITALS (13 sets, daily range): BP systolic 120–134; BP diastolic 58–71; PULSE 95–117; RESP 20–28; TEMP 36.2–36.6; O2SAT 88–97
--- NOTE | 2019-10-27 00:53 | PC.NURSE ---
Sleepiong. O2 continues. Head of bed elevated.
[2019-10-27] MEDS: ACETAMINOPHEN 325 MG TABLET 650 MG PO (02:08)
[2019-10-27] MEDS: IPRATROPIUM 0.5 MG/ALBUTEROL SULFATE 2.5 MG AMPUL.NEB 3 ML INHALATION ×2 (02:10→05:44)
[2019-10-27] MEDS: ALBUTEROL SULFATE NEB 2.5 MG/3 ML INH INHALATION (03:07)
--- NOTE | 2019-10-27 03:08 | PC.NURSE ---
Pt very short of breath. Pt called daughter. Daughter here. Physician notified. Prn rt tx was given per mask. O2 down to 3L per nc per order.
--- NOTE | 2019-10-27 03:24 | PC.NURSE ---
Spo2 84%. Physician notified. O2 back up to 5L per nc/ per order.
[2019-10-27] MEDS: DIAZEPAM 5 MG TABLET PO (03:45)
--- NOTE | 2019-10-27 03:49 | PC.NURSE ---
Valium 5mg po given for anxiety.
--- NOTE | 2019-10-27 05:21 | PC.NURSE ---
Sleeping. Head of bed elevated. O2 continues 5L per nc Spo2 92% @ tjhis time. Telemetry continues.
[2019-10-27] MEDS: ACETYLCYSTEINE 20% INHAL SOLN 800 MG/4 ML VIAL 600 MG INHALATION (05:42)
[2019-10-27 05:45] LABS: Hematocrit 37.7 % (37.0-46.0); Hemoglobin 12.4 g/dL (12.4-15.3); Mean Corpuscular HGB Conc 32.9 g/dL (32.0-36.0); Mean Corpuscular Hemoglobin 30.9 pg (27.0-31.0); Mean Platelet Volume 10.3 fl (8.7-11.0); Platelet Count Result 165 K/mm3 (150-420); Red Blood Count 4.01 M/mm3 (4.70-6.10); Red Cell Distribution Width 11.8 % (11.6-14.4); White Blood Count 7.3 K/mm3 (4.8-10.8)
[2019-10-27 05:55] LABS: Blood Urea Nitrogen 24 mg/dL (7-18); Calcium 8.9 mg/dL (8.5-10.1); Chloride 83 mmol/L (98-108); Estimated CRCL calculation 52 ml/min; Estimated Glomerular Filt Rate > 60; Glucose 128 mg/dL (70-99); Osmolality Calculated 270 mOsm/kg (285-295); Potassium 4.6 mmol/L (3.5-5.1); Sodium 127 mmol/L (136-145)
[2019-10-27 06:03] LABS: Carbon Dioxide > 45 mmol/L (21-32)
--- NOTE | 2019-10-27 06:33 | PC.NURSE ---
Watching TV o2 continues 5L per NC Head of bed elevated. Spo2 96% @ this time.
[2019-10-27 07:04] LABS: Base Excess ABG 15.8 mmol/L (0-2); Oxygen Content ABG 18.7 %vol (16.0-22.0); Oxygen Saturation ABG 97.1 % (95-97); Oxyhemoglobin 96.1 % (94-100); PO2 ABG 95.4 mmHg (75-85); Total Hemoglobin 13.8 g/dL; pH ABG 7.31 (7.35-7.45)
--- NOTE | 2019-10-27 07:06 | PC.NURSE ---
Pt sat on side of bed Spo2 73% physician notified. 10L non rebreather put on per order.
[2019-10-27 07:07] LABS: Device NASAL CANNULA; Modified Allen's Test Pass; PCO2 ABG 96.6 mmHg (35-45); Site Drawn RIGHT RADIAL
[2019-10-27] MEDS: SODIUM CHLORIDE 0.9% IV 500 ML IV CONT (07:44)
[2019-10-27 09:11] LABS: Base Excess ABG 24.5 mmol/L (0-2); HCO3 ABG 57.3 mmol/L (23-29); Oxygen Content ABG 17.7 %vol (16.0-22.0); Oxygen Saturation ABG 96.8 % (95-97); Oxyhemoglobin 95.8 % (94-100); PCO2 ABG 116.9 mmHg (35-45); Total Hemoglobin 13.1 g/dL; pH ABG 7.31 (7.35-7.45)
[2019-10-27 09:13] LABS: Device BIPAP; Modified Allen's Test Pass; Site Drawn RIGHT RADIAL
[2019-10-27 09:16] LABS: Troponin I < 0.02 ng/mL (0.00-0.056)
[2019-10-27] MEDS: LORAZEPAM INJ 2 MG/ML VIAL 0.5 MG IV PUSH ×2 (09:18→13:10)
[2019-10-27 09:26] LABS: Expiratory Pressure 4 cmH2O; Inspiratory Pressure 8 cmH2O
--- NOTE | 2019-10-27 09:32 | ECG_ITS ---
Measurements Intervals [place] Rate: 100 P: 80 [place]: 136 QRS: 65 QRSD: 89 T: 66 QT: 300 QTc: 387 Interpretive Statements SINUS TACHYCARDIA ATRIAL PREMATURE COMPLEX RSR' IN V1 OR V2, CONSIDER RIGHT VENTRICULAR HYPERTROPHY OR RIGHT VCD DELAYED PRECORDIAL R/S TRANSITION BASELINE ARTIFACT- I, III, AVR, AVL, AVF, V1-V2, V4-V6 BORDERLINE ECG Electronically Signed On 10-27-2019 9:37:32 [facility] by Nicolas Wu D.O.
[2019-10-27 11:17] LABS: Base Excess ABG 14.9 mmol/L (0-2); HCO3 ABG 45.5 mmol/L (23-29); Oxygen Content ABG 18.5 %vol (16.0-22.0); Oxygen Saturation ABG 95.3 % (95-97); Oxyhemoglobin 94.1 % (94-100); PCO2 ABG 90.1 mmHg (35-45); PO2 ABG 74.5 mmHg (75-85); pH ABG 7.32 (7.35-7.45)
[2019-10-27 11:18] LABS: Device BIPAP; Expiratory Pressure 4 cmH2O; Inspiratory Pressure 8 cmH2O; Modified Allen's Test Pass; Site Drawn LEFT RADIAL
[2019-10-27] MEDS: methylPREDNISolone SOD SUCC 125 MG VIAL 60 MG IV PUSH (11:29)
[2019-10-27] MEDS: LORAZEPAM 0.5 MG TABLET PO (11:30)
--- NOTE | 2019-10-27 11:30 | PC.NURSE ---
Patient continue to be very restless at times. Patient not tolerating increase in rate of bipap. Bipap setting turned back down to 8/4, patient tolerating well. Getting restless and combative. Daughter dai asked to sit with patient. Patient calmed down some with Dai at side. Patient was fighting nurse to have blood pressure taken. Once Dai at side patient allowed nurse to take blood pressure. Resting in bed with hob elevated. RT in room to monitor Bipap setting. Patient and family aware of transfer status. Waiting for hospital to call back with room number.
--- NOTE | 2019-10-27 12:08 | PM.DS ---
DS: Diagnosis Admitting Diagnosis Admitting Diagnosis: Gastro-esophageal reflux disease without esophagitis Discharge Diagnosis (1) GERD (gastroesophageal reflux disease): Code(s): K21.9 - Gastro-esophageal reflux disease without esophagitis Status: Chronic Assessment and Plan: Stable and resolved continue Protonix, Tums and Pepcid (2) COPD (chronic obstructive pulmonary disease): Code(s): J44.9 - Chronic obstructive pulmonary disease, unspecified Status: Chronic Assessment and Plan: continue prednisone, antibiotic and breathing treatments patient uses home O2 continue the use of supplement oxygen continue Mucinex, Tesselon Pearls, Flonase, discontinued Cefdinir (recieved rx from PCP and took 5-6 doses with no improvement at home) continue home dosing of Sildenafil for severe pulmonary HTN, furosemide for CHF/edema, (3) Acute chronic obstructive pulmonary disease with respiratory distress: Code(s): J44.9 - Chronic obstructive pulmonary disease, unspecified; R06.03 - Acute respiratory distress Status: Chronic Assessment and Plan: secondary to COPD admitted with continous telemetry monitoring and continuous pulse oximetry monitoring. Influ swab negative. continue supplement oxygen, neb treatments, cough suppressant, decongested and Flonase started low dose Valium in Ativan continue steroids and antibiotics currently needing 2-3 LPM here per continuous pulse oximetry monitoring continue home dosing of Sildenafil for severe pulmonary HTN, furosemide for CHF/edema, (4) Tachycardia: Code(s): R00.0 - Tachycardia, unspecified Status: Acute Assessment and Plan: possibly related to dehydration or anxiety or respiratory distress or nebulizer medications or panic attack like s/s or GERD discomfort highest heart rate today between 120 and 140 nursing to encourage oral hydration Trops x 3 WNL started low dose Valium and Ativan p.r.n. also started Cardizem EKG at admission with Sinus Tach and PVCs. CXR shows emphysema unchanged with scarring at bilateral apices and the LLL base. (5) Degenerative disc disease, cervical: Code(s): M50.30 - Other cervical disc degeneration, unspecified cervical region Status: Acute Assessment and Plan: neck xray showed severe degenerative disc disease at C5-C6 and C6-C7 may use Lidocaine patches, heating pad, ice packs, needs to F/U with Orthopedic Surgeon and Pain Management physician (6) Carotid stenosis: Code(s): I65.29 - Occlusion and stenosis of unspecified carotid artery Status: Acute Assessment and Plan: audible left carotid bruit with ausculation ordered bilateral carotid doppler less than 50% stenosis right and left patient stated that he had a past left endarectomy but had not had follow up US studies in over 2 years. DS: Summary Hospital Course Reason for hospitalization: severe COPD exacerbation Hospital Course: Reason for hospitalization: severe COPD exacerbation Hospital Course: patient admitted 10/24/2019 H&P notes: Taz Ambrocio is a 79 year old male admitted via ambulance with worsening SOB, dyspnea and runny nose with congestion. He stated that he started feeling worse and more SOB on evening, approximately 5-6 days ago, but did not call his Patient Registration Specialist Dr. Wallis. He has been coughing, but it is nonproductive at this time. He also denies any known fevers or chills at home. He does admit to some sinus congestion and upper airway wheezing at home, but felt like his breathing treatments helped control the wheezing. He is feeling more and more SOB, then gets anxious, feels almost like he is having a panic attack , his heart rate gets higher, and then his SOB gets even worse. He is only able to remain upright and feels like he cannot breath lying down. He admits to chest pain ( tightness ), wheezing and orthopnea. He denies having a CPAP or
[2019-10-27 13:07] LABS: Magnesium 1.8 mg/dL (1.8-2.4)
== END 2019-10-27 13:10 | disposition short-term general hospital (02) | DRG 191 ==
LOC: CHSED 18:02 → CHS2ND 20:31
PROVIDERS: Emergency Medicine; Nurse Practitioner; Admitting Provider Emergency Medicine; Emergency Provider Emergency Medicine; Visit Provider Emergency Medicine
DX: J44.1 Chronic obstructive pulmonary disease with (acute) exacerbation (principal); I47.2 Ventricular tachycardia; R06.03 Acute respiratory distress; I11.0 Hypertensive heart disease with heart failure; I50.9 Heart failure, unspecified; K21.9 Gastro-esophageal reflux disease without esophagitis; E78.5 Hyperlipidemia, unspecified; I65.22 Occlusion and stenosis of left carotid artery; M50.30 Other cervical disc degeneration, unspecified cervical region
CPT/HCPCS: 36415; 36600; 71045; 71275; 80048; 80053; 81001; 82805; 83735; 83880; 84100; 84484; 85025; 85027; 85380; 85610; 85730; 87040; 87804; 93005; 93880; 94640; 94660; 96365; 96367; 96374; 96375; 96376; 99285; A9270; G0378; J1956; J2060; J2920; J2930; J3475; J7040; Q9965

== ENCOUNTER 2019-10-27 15:17 | Inpatient (IN) | payer MEDICARE, SELFPAY ==
[2019-10-27] VITALS (15 sets, daily range): BP systolic 117–169; BP diastolic 79–93; PULSE 87–119; RESP 12–24; TEMP 36.5–36.7; O2SAT 92–100; BMI 20.5
--- NOTE | ~2019-10-27 | XR_ITS ---
EXAMINATION: XR chest 1V portable DATE: 10/30/2019 05:43 INDICATION: Respiratory failure. COPD. TECHNIQUE: frontal view of the chest was obtained. COMPARISON: Chest radiograph dated 10/29/2019 FINDINGS: Hyperexpansile lungs and emphysema. Chronic biapical pleural-parenchymal scarring. Resolution of prio r tiny bilateral pleural effusions. No pneumothorax. The cardiomediastinal silhouette is normal. IMPRESSION: 1. Emphysema. Reviewed, dictated and finalized at location A. ITURE FINISHER IMPRESSION: 1. Emphysema.
--- NOTE | ~2019-10-27 | XR_ITS ---
EXAMINATION: XR chest 1V portable DATE: 10/31/2019 06:07 INDICATION: Respiratory failure TECHNIQUE: frontal view of the chest was obtained. COMPARISON: Chest radiograph dated 10/30/2019 FINDINGS: Emphysema with hyperexpansion of the lungs. Chronic biapical pleural-parenchymal scarring. No pulmona ry edema, pleural effusion or pneumothorax. The cardiomediastinal silhouette is normal. IMPRESSION: 1. Emphysema. Reviewed, dictated and finalized at location A. ELLANT CHARGE LOADER IMPRESSION: 1. Emphysema.
--- NOTE | ~2019-10-27 | XR_ITS ---
EXAMINATION: XR chest 1V portable DATE: 10/28/2019 05:50 INDICATION: Respiratory failure. TECHNIQUE: A single frontal view of the chest was obtained on 2 radiographs. COMPARISON: Chest single view 10/27/2019, chest CT 10/25/2019 FINDINGS: The lungs are hyperexpanded with lucencies, consistent with emphysema. No pneumonia, pleura l effusion, or pneumothorax. The heart size is normal. IMPRESSION: 1. Severe emphysema. Reviewed, dictated and finalized at location A. RIBUTION OPERATIONS SUPERVISOR IMPRESSION: 1. Severe emphysema.
--- NOTE | ~2019-10-27 | XR_ITS ---
EXAMINATION: XR chest 1V portable DATE: 10/29/2019 05:41 INDICATION: Respiratory failure TECHNIQUE: frontal view of the chest was obtained. COMPARISON: Chest radiograph dated 10/28/2019 FINDINGS: Hyperexpansion of lungs and emphysema. Tiny bilateral pleural effusions with blunting at costophrenic angles. Biapical pleural-parenchymal scarring. No other focal airspace opacities, pulmonary edema o r pneumothorax. The cardiomediastinal silhouette is normal. IMPRESSION: 1. Emphysema with tiny bilateral pleural effusions. Reviewed, dictated and finalized at location A. MET MACHINE OPERATOR
--- NOTE | ~2019-10-27 | XR_ITS ---
EXAMINATION: XR chest 1V portable DATE: 11/01/2019 05:43 INDICATION: Respiratory failure. TECHNIQUE: A single frontal view of the chest was obtained. COMPARISON: Chest single view 10/31/2019, chest CT 10/25/2019 FINDINGS: The lungs are hyperexpanded with lucencies, consistent with emphysema. No pleural effusion or pneumothorax. The heart size is normal. IMPRESSION: 1. Emphysema. Reviewed, dictated and finalized at location A. ERTY MANAGEMENT ASSISTANT IMPRESSION: 1. Emphysema.
--- NOTE | 2019-10-27 14:00 | WPDCNINT ---
Assessment and Plan Assessment and plan (1) Acute and chronic respiratory failure: Code(s): J96.20 - Acute and chronic respiratory failure, unspecified whether with hypoxia or hypercapnia Status: Acute Assessment and Plan: Acute on chronic Respiratory failure secondary to AECOPD Continue BiPAP support for increased work of breathing to prevent hypoxemia/hypercarbia and end organ damage. ABG reviewed and shows fairly compensated respiratory acidosis and hypercarbia with some improvement on repeat ABG. Will repeat ABG in 1 hour. Wean FiO2 to keep saturation 88-92% CT Chest reviewed continue Steroids, bronchodilators, empiric Levaquin WBC Normal Blood Cx x 2 Sent and Pending Influenza negative NPO Precedex infusion to control the anxiety component on BiPAP and avoid benzodiazepine that he has been receiving. If he does not improve he may need intubation and invasive mechanical ventilation. (2) Acute exacerbation of chronic obstructive pulmonary disease: Code(s): J44.1 - Chronic obstructive pulmonary disease with (acute) exacerbation Status: Acute Assessment and Plan: see above (3) GERD (gastroesophageal reflux disease): Code(s): K21.9 - Gastro-esophageal reflux disease without esophagitis Status: Acute Assessment and Plan: continue PPI (4) HTN (hypertension): Code(s): I10 - Essential (primary) hypertension Status: Acute Assessment and Plan: treat p.r.n. (5) Hyperlipidemia: Code(s): E78.5 - Hyperlipidemia, unspecified Status: Acute Assessment and Plan: continue statin (6) Carotid stenosis: Code(s): I65.29 - Occlusion and stenosis of unspecified carotid artery Status: Acute Assessment and Plan: continue aspirin and statin (7) Ventricular arrhythmia: Code(s): I49.9 - Cardiac arrhythmia, unspecified Status: Acute Assessment and Plan: per report from outside hospital physician patient had a run of nonsustained V-tach. Currently in sinus tach with PVCs. Magnesium 1.8 replace with 2 g Mag sulfate and monitor. Troponins on presentation were normal Aspirin (8) Pulmonary hypertension: Code(s): I27.20 - Pulmonary hypertension, unspecified Status: Acute Assessment and Plan: Continue Revatio Additional Plan DVT prophylaxis - Lovenox Stress ulcer prophylaxis - PPI Nutrition - NPO Patient's family updated at bedside Code Status - patient unable to participate but patient's and daughter request the patient be full code at this time. Total Critical Care Time - 35 minutes Due to a high probability of clinically significant, life threatening deterioration, the patient required my highest level of preparedness to intervene emergently and I personally spent this critical care time directly and personally managing the patient. This critical care time included obtaining a history; examining the patient; pulse oximetry; ordering and review of studies; arranging urgent treatment with development of a management plan; evaluation of patient's response to treatment; frequent reassessment; and discussions with other providers. It was exclusive of separately billable procedures and treating other patients and teaching time. Please see Assessment and Plan section and the rest of the note for further information on patient assessment and treatment [employer] Consult Note Consult date: 10/27/19 Time Seen: 14:00 HPI: Taz Ambrocio is a 79-year-old male with a history of COPD who was transferred from [facility] with acute respiratory failure requiring BiPAP. Patient was admitted there on 10/24 with chief complaint of shortness of breath and chest congestion. He was diagnosed with COPD exacerbation and started on steroids bronchodilators and Levaquin. Patient is on oxygen at home and has history of severe COPD. As per H&P done it is not on hospital patient is being evaluated fo
--- NOTE | 2019-10-27 14:01 | ADMGEN ---
This patient, Taz Ambrocio, was admitted to Intensive Care Unit-2. Patient/family oriented to hospital policies and general routines including ID bracelet, bed and alarms, visiting hours, pain management, procedures, bathroom and other care routines, personal items, smoking policy, room service/diet, and visiting hours. Valuables list has been completed. Information on how to activate the Rapid Response Team has been discussed. Patient/Family are encouraged to report perceived risks to care and to ask questions if they do not understand what they are told or what they should do.
[2019-10-27] MEDS: ALBUTEROL SULFATE NEB 2.5 MG/0.5 ML INH INHALATION ×2 (14:12→19:09)
[2019-10-27] MEDS: IPRATROPIUM BR 0.02% INH SOLN 0.5 MG/2.5 ML VIAL INHALATION ×2 (14:12→19:09)
[2019-10-27] MEDS: methylPREDNISolone SOD SUCC 125 MG VIAL 60 MG IV PUSH (14:24)
[2019-10-27] MEDS: levoFLOXacin 500 MG/D5W 100 ML 500 MG/100 ML BAG 100 MG IVPB (14:27)
[2019-10-27] MEDS: MAGNESIUM SULF 2 GM/WATER 50ML 2 GM/50 ML BAG IVPB (14:29)
--- NOTE | 2019-10-27 14:32 | PM.DS ---
DS: Diagnosis Discharge Diagnosis (1) GERD (gastroesophageal reflux disease): Code(s): K21.9 - Gastro-esophageal reflux disease without esophagitis Status: Acute Assessment and Plan: stable continue Protonix (2) COPD (chronic obstructive pulmonary disease): Code(s): J44.9 - Chronic obstructive pulmonary disease, unspecified Status: Acute Assessment and Plan: patient ABG is pH 7.3 to, CO2 90 point, PO2 74.5, bicarb 45.5 post BiPAP settings 12/5 with 4 L. patient transported to [facility] in the care of the mine safety director patient in respiratory distress on discharge was stable enough to transport via EMS with BiPAP and respiratory therapist. (3) Sinus tachycardia: Code(s): R00.0 - Tachycardia, unspecified Status: Acute Assessment and Plan: heart rate improved yesterday heart rates between 120-140 , Cardizem started EKG completed before discharge patient has sinus tach with heart rate in the lower 100s (4) Carotid stenosis, left: Code(s): I65.22 - Occlusion and stenosis of left carotid artery Status: Acute Assessment and Plan: bilateral carotid indicating less than 50% stenosis right and left patient with a history of past left endarterectomy. (5) Acute respiratory distress: Code(s): R06.03 - Acute respiratory distress Status: Acute Assessment and Plan: patient received antibiotics, steroids, nebulizers this hospital stay with no improvement. patient does have severe COPD. planned airway stent procedure in the future Dr. Wallis in [place] as patient's senior support engineer DS: Summary Hospital Course Reason for hospitalization: severe COPD exacerbation Hospital Course: patient admitted 10/24/2019 H&P notes: Taz Ambrocio is a 79 year old male admitted via ambulance with worsening SOB, dyspnea and runny nose with congestion. He stated that he started feeling worse and more SOB on evening, approximately 5-6 days ago, but did not call his Surgery Technician Dr. Wallis. He has been coughing, but it is nonproductive at this time. He also denies any known fevers or chills at home. He does admit to some sinus congestion and upper airway wheezing at home, but felt like his breathing treatments helped control the wheezing. He is feeling more and more SOB, then gets anxious, feels almost like he is having a panic attack , his heart rate gets higher, and then his SOB gets even worse. He is only able to remain upright and feels like he cannot breath lying down. He admits to chest pain ( tightness ), wheezing and orthopnea. He denies having a CPAP or BIPAP machine at home for JAMMIE. He has been using his oxgyen and bronchodilator at home. He uses 2 L typically, but has been trying 3 L in the last few days with no relief. He has a known significant COPD history. He denies any accompanying illness but noticed an onset to his increasing short of breath. His primary care physician called in some oral antibiotics. He has had no vomiting, diarrhea, fever, sputum production, or syncope. He states that he has got some tightness in his chest that goes to his neck but does not radiate to either of his arms. He states his last admission for lung illness was in 2018. He has been getting a full respiratory and cardiac workup at [facility] due to him preparing for lung reduction surgery. 08/25/2020- rapid response was called on patient according to nursing staff patient had a run of V tach approximately 20 beats. Patient also complained that he could not breath. Dr. Shahid at bedside, per notes patient's sats levels were in the 40s to 50s. Patient was placed on 10 L non-rebreather mask , significant improvement he was later weaned down to 5 L nasal cannula and was stable. 08/26/2020 ABGs collected ER doctor ,Dr. Pathak notified of results, patient placed on BiPAP. patient EKG indicated sinus tach heart 107, troponin was negati
[2019-10-27 15:17] LABS: Alveolar/Arterial O2 Gradient 82.1 mmHg; Base Excess ABG 13.3 mEq/l (+/-2.0); Fractional Inspired Oxygen 35 %; HCO3 ABG 42.4 mEq/l (22.0-26.0); Oxygen Content ABG 17.2 %vol (16.0-22.0); Oxygen Saturation ABG 93.8 % (95.0-100.0); Oxyhemoglobin 93.7 % THb (90.0-100.0); PO2 ABG 75.8 mmHg (80.0-100.0); PO2 FiO2 Ratio Arterial Blood 2.17 %; pH ABG 7.349 (7.350-7.450)
[2019-10-27 15:20] LABS: Device NON-INVASIVE VENT; Modified Allen's Test Pass; Non-Invasive Expiratory Pressure 6 CMH2O; Non-Invasive Inspiratory Pressure 12 CMH2O; Non-Invasive Vent Rate 10 /MIN; PCO2 ABG 78.8 mmHg (35.0-45.0); Site Drawn RIGHT RADIAL
--- NOTE | 2019-10-27 15:30 | PM.IMHP ---
H&P: HPI History of Present Illness Chief complaint: severe COPD exacerbation Narrative: Taz Ambrocio is a 79 year old male who was received from [facility] as a direct admit to the intensive care unit. Patient was taken into [facility] looks like on 10/24/2019 via ambulance for worsening shortness of breath, dyspnea and runny nose with congestion. The patient has been seeing a lung specialist Dr. Wallis who had thought about doing a lung valve according to the family. Also the patient sees Dr. matamoros a scraper burrer who also considered doing a lung reduction. The patient is chronically on oxygen at 2-3 L. the patient has been coughing but has been nonproductive. No known fevers or chills. He has had some sinus congestion and upper airway wheezing at home. He tried breathing treatments to help the wheezing. He does get more short of breath and anxious. He has been having panic attacks. Patient has a significant history for COPD. His primary care doctor did call him in some oral antibiotics. There was a cross coverage note from the with patient was having an episode of shortness of breath. His oxygen levels 40 to 50s. He is placed on a non-rebreather at 10 L which did help some. At that time they are having difficulty monitoring his O2 saturations due to his cold hands. Patient was found to be in sinus tachycardia. He was given dual nebs with Mucomyst. He was checked on a few minutes later in the weaned of down to 5 L per nasal cannula. Patient's magnesium was borderline any received IV magnesium supplement. He was also known to have a run of V-tach. Was received here the flame channeler did see the patient. Patient was very agitated and tried to climb out of bed. The patient was started on a Precedex drip. He is currently on a BiPAP machine and settings were changed to 12/6. Patient is sedated at this time and I am unable to obtain any information from the patient. The date of service 10/27/2019 Review of Systems Review of Systems: Narrative: Unable to obtain anything from the patient due to his sedation ROS unobtainable: unobtainable due to mental status Constitutional: Constitutional: Reports as per HPI and Reports no additional constitutional complaints Eyes: Eyes: Reports as per HPI and Reports no additional eye complaints ENT: Reports system reviewed and no additional complaints, except as documented and Reports Normal hearing present Cardiovascular: Cardiovascular: Reports no additional cardiovascular complaints Respiratory: Respiratory: Reports no additional respiratory complaints and Reports no additional respiratory complaints Gastrointestinal: Gastrointestinal: Reports as per HPI and Reports no additional gastrointestinal complaints Musculoskeletal: Musculoskeletal: Reports no additional musculoskeletal complaints Integumentary/Breasts: Skin/Breast: Reports system reviewed and no additional complaints, except as docu and Reports as per HPI Neurologic: Reports system reviewed and no additional complaints, except as documented, Reports as per HPI and Reports Normal hearing present Psychiatric: Psychiatric: Reports no additional psychiatric complaints and Reports as per HPI Endocrine: Endocrine: Reports no additional endocrine complaints Hematologic/Lymphatic: Hematologic/Lymphatic: Reports no additional hematologic/lymphatic complaints Allergic/Immunologic: Allergic/Immunologic: Reports no additional allergic/immunologic complaints [facility] Past Medical History Medical History (Updated 10/27/19 @ 15:38 by Eva Copeland NP) Carotid stenosis, left CHF (congestive heart failure) COPD (chronic obstructive pulmonary disease) GERD (gastroesophageal reflux disease) HTN (hypertension) Hyperlipidemia Surgical History Surgical History (Updated 10/27/19 @ 16:28 by Eva Copeland NP) H/O carotid endarterectomy Family History Family History (Updated 10/27/19 @ 15:41 by Eva Copeland
[2019-10-27 18:36] LABS: Glucose Point of Care 139 (65-105)
[2019-10-28] VITALS (23 sets, daily range): BP systolic 103–173; BP diastolic 59–92; PULSE 74–124; RESP 12–32; TEMP 36.3–38.2; O2SAT 93–100
[2019-10-28 00:16] LABS: Glucose Point of Care 152 (65-105)
[2019-10-28] MEDS: methylPREDNISolone SOD SUCC 125 MG VIAL 60 MG IV PUSH ×2 (01:59→14:06)
[2019-10-28] MEDS: ALBUTEROL SULFATE NEB 2.5 MG/0.5 ML INH INHALATION ×4 (02:37→20:28)
[2019-10-28] MEDS: IPRATROPIUM BR 0.02% INH SOLN 0.5 MG/2.5 ML VIAL INHALATION ×4 (02:38→20:28)
[2019-10-28 04:51] LABS: Device NON-INVASIVE VENT; Modified Allen's Test Pass; Non-Invasive Inspiratory Pressure 12 CMH2O; Non-Invasive Vent Rate 10 /MIN; Site Drawn RIGHT BRACHIAL
[2019-10-28 04:52] LABS: Non-Invasive Expiratory Pressure 6 CMH2O
[2019-10-28 04:55] LABS: Base Excess ABG 14.8 mEq/l (+/-2.0); HCO3 ABG 44.9 mEq/l (22.0-26.0); PCO2 ABG 87.2 mmHg (35.0-45.0); PO2 ABG 161.9 mmHg (80.0-100.0)
[2019-10-28 04:56] LABS: Carboxyhemoglobin 0.2 % THb (0-2.0); Oxygen Content ABG 18.7 %vol (16.0-22.0); Oxygen Saturation ABG 98.8 % (95.0-100.0); Reduced Hemoglobin 1.5 %THb (0-5.0); Total Hemoglobin 13.4 g/dL (12.0-18.0)
[2019-10-28 04:57] LABS: Fractional Inspired Oxygen 30 %; Methemoglobin ABG 0.4 %THb (0-1.5); Oxyhemoglobin 97.9 % THb (90.0-100.0)
[2019-10-28 05:19] LABS: Hematocrit 37.5 % (42.0-52.0); Hemoglobin 12.5 g/dL (14.0-18.0); Mean Corpuscular HGB Conc 33.3 g/dl (32-36); Mean Corpuscular Hemoglobin 30.9 pg (26-34); Mean Corpuscular Volume 92.8 fl (80-100); Mean Platelet Volume 10.3 fl (7.4-10.4); Platelet Count Result 170 k/mm3 (150-375); Red Blood Count 4.04 M/mm3 (4.6-6.20); Red Cell Distribution Width 11.6 % (11.5-14.5); White Blood Count 6.2 K/mm3 (4.5-10.0)
[2019-10-28 05:42] LABS: Alanine Aminotransferase 34 U/L (4-50); Albumin Level 3.6 g/dL (3.5-5.1); Alkaline Phosphatase 64 U/L (38-126); Aspartate Amino Transferase 55 U/L (17-59); Bilirubin,Total 0.5 mg/dL (0.2-1.3); Blood Urea Nitrogen 28 mg/dL (9-20); Calcium 8.7 mg/dL (8.4-10.2); Carbon Dioxide > 40 mmol/L (22-30); Chloride 70 mmol/L (98-107); Estimated CRCL calculation 60 ml/min; Estimated Glomerular Filt Rate > 60; Glucose 130 mg/dL (75-110); Magnesium 2.4 mg/dL (1.6-2.3); Potassium 5.1 mmol/L (3.4-5.0); Sodium 123 mmol/L (137-145)
--- NOTE | 2019-10-28 07:15 | WPDINTPN ---
Progress Note: A&P Assessment and Plan (1) Acute and chronic respiratory failure: Code(s): J96.20 - Acute and chronic respiratory failure, unspecified whether with hypoxia or hypercapnia Status: Acute Assessment and Plan: Acute on chronic Respiratory failure secondary to AECOPD patient was on BiPAP yesterday and overnight. ABG was was this morning and BiPAP was changed to 20/10 early this morning. I repeated an ABG and shows improved hypercarbia and acidosis. Patient also appears clinically better with less respiratory distress and use of accessory muscles. Will give him a break from BiPAP and see how he does on nasal cannula. will use BiPAP support as needed and at night. Continue BiPAP support for increased work of breathing to prevent hypoxemia/hypercarbia and end organ damage. CT Chest reviewed continue Steroids, bronchodilators, empiric Levaquin WBC Normal Blood Cx x 2 Sent and Pending Influenza negative NPO Continue Precedex infusion to control the anxiety component on BiPAP and avoid benzodiazepine that he has been receiving. If he deteriorates then he may need intubation and invasive mechanical ventilation. (2) Acute exacerbation of chronic obstructive pulmonary disease: Code(s): J44.1 - Chronic obstructive pulmonary disease with (acute) exacerbation Status: Acute Assessment and Plan: see above (3) GERD (gastroesophageal reflux disease): Code(s): K21.9 - Gastro-esophageal reflux disease without esophagitis Status: Chronic Assessment and Plan: continue PPI (4) HTN (hypertension): Code(s): I10 - Essential (primary) hypertension Status: Chronic Assessment and Plan: blood pressure adequately controlled at this time treat p.r.n. (5) Hyperlipidemia: Code(s): E78.5 - Hyperlipidemia, unspecified Status: Chronic Assessment and Plan: continue statin (6) Carotid stenosis: Code(s): I65.29 - Occlusion and stenosis of unspecified carotid artery Status: Acute Assessment and Plan: continue aspirin and statin (7) Ventricular arrhythmia: Code(s): I49.9 - Cardiac arrhythmia, unspecified Status: Acute Assessment and Plan: per report from outside hospital physician patient had a run of nonsustained V-tach. Currently in sinus tach with PVCs. Magnesium 1.8 replace with 2 g Mag sulfate and monitor. Troponins on presentation were normal Aspirin (8) Pulmonary hypertension: Code(s): I27.20 - Pulmonary hypertension, unspecified Status: Acute Assessment and Plan: Continue Revatio Additional Plan DVT prophylaxis - Lovenox Stress ulcer prophylaxis - PPI Nutrition - NPO Patient's family updated at bedside Code Status - patient unable to participate but patient's and daughter request the patient be full code at this time. Total Critical Care Time - 32 minutes Due to a high probability of clinically significant, life threatening deterioration, the patient required my highest level of preparedness to intervene emergently and I personally spent this critical care time directly and personally managing the patient. This critical care time included obtaining a history; examining the patient; pulse oximetry; ordering and review of studies; arranging urgent treatment with development of a management plan; evaluation of patient's response to treatment; frequent reassessment; and discussions with other providers. It was exclusive of separately billable procedures and treating other patients and teaching time. Please see Assessment and Plan section and the rest of the note for further information on patient assessment and treatment Subjective Date/time seen: 10/28/19 0715 patient wore BiPAP all night. ABG this morning was slightly worse and BiPAP settings were changed to 20/10 by the overnight hospitalist. Patient on Precedex at 1 might and drowsy this morning. He he is easily
[2019-10-28 07:50] LABS: Alveolar/Arterial O2 Gradient 61.8 mmHg; Base Excess ABG 14.5 mEq/l (+/-2.0); Fractional Inspired Oxygen 30 %; HCO3 ABG 42.6 mEq/l (22.0-26.0); Oxygen Content ABG 17.8 %vol (16.0-22.0); Oxygen Saturation ABG 93.2 % (95.0-100.0); Oxyhemoglobin 93.6 % THb (90.0-100.0); PO2 ABG 69.4 mmHg (80.0-100.0); PO2 FiO2 Ratio Arterial Blood 2.31 %; Total Hemoglobin 13.5 g/dL (12.0-18.0)
[2019-10-28 07:52] LABS: Device NON-INVASIVE VENT; Modified Allen's Test Pass; Non-Invasive Expiratory Pressure 10 CMH2O; Non-Invasive Inspiratory Pressure 20 CMH2O; Non-Invasive Vent Rate 20 /MIN; PCO2 ABG 70.4 mmHg (35.0-45.0); Site Drawn RIGHT RADIAL
[2019-10-28] MEDS: SILDENAFIL CITRATE 20 MG TABLET PO ×2 (08:46→17:31)
[2019-10-28] MEDS: LOVASTATIN 20 MG TABLET PO (08:46)
[2019-10-28] MEDS: ASPIRIN 325 MG TABLET PO (08:46)
[2019-10-28] MEDS: PANTOPRAZOLE 40 MG TABLET PO (08:46)
--- NOTE | 2019-10-28 11:10 | PM.EVENT ---
Event Note Event Note Event Note: patient and his family had a meeting with the hospitalist and discussed options regarding code status. After discussing among themselves, Patient has decided that he would like to be DNR and DNI at this time he does not want any CPR chest compressions, electric shock or want to go on any respirator. I have confirmed this with the patient himself And placed orders in the chart.
--- NOTE | 2019-10-28 12:26 | PM.IMPN ---
Progress Note: A&P Assessment and Plan (1) Acute and chronic respiratory failure: Code(s): J96.20 - Acute and chronic respiratory failure, unspecified whether with hypoxia or hypercapnia Status: Acute Assessment and Plan: With hypercapnia. Responding well to BiPAP with last ABG 7.4 with pCO2 is 70 probably his baseline (2) Acute exacerbation of chronic obstructive pulmonary disease: Code(s): J44.1 - Chronic obstructive pulmonary disease with (acute) exacerbation Status: Acute Assessment and Plan: Continue BiPAP, updrafts, steroids, and antibiotics (3) HTN (hypertension): Code(s): I10 - Essential (primary) hypertension Status: Chronic Assessment and Plan: Pressure fine at present time hold on his Elvin and diuretic (4) CHF (congestive heart failure): Code(s): I50.9 - Heart failure, unspecified Status: Acute Assessment and Plan: Are specified obtain echocardiogram to assess ventricular function. Suspect the has pulmonary hypertension since he is on sildenafil (5) Hyponatremia: Code(s): E87.1 - Hypo-osmolality and hyponatremia Status: Acute Assessment and Plan: Hold diuretic rest and mild hydration with saline (6) DVT prophylaxis: Code(s): Z29.9 - Encounter for prophylactic measures, unspecified Status: Acute Assessment and Plan: Lovenox Subjective Date/time seen: 10/28/19 12:26 Interval history: Date of visit 10/27. 79-year-old hypertensive white male with severe COPD admitted with increasing cough shortness of breath and respiratory distress. Date was transferred from [facility] even though his application processor and thoracic surgeon are at [place]. Today patient is comfortable on a BiPAP maintaining O2 sats and latest blood gas CO2 has dropped to probably his baseline Exam Narrative: Exam Narrative: Blood pressure 134/60 pulse is 70 regular respirations 18 per minute satting 92% to 94% on the BiPAP (20/10 30%) Pupils equal reactive to light sclera anicteric Lungs clear prolonged expiratory phase, distant breath sounds, not much air movement CV regular rate rhythm Abdomen benign Extremities without edema Neuro has been sedated with Precedex Objective Data Vital Signs Vital Signs: Vital Signs - 24 hr 10/27/19 13:55 10/27/19 13:59 10/27/19 14:00 Temperature 36.5 C Pulse Rate 110 H 119 H 115 H Respiratory Rate 24 H 21 H Blood Pressure 147/83 H Pulse Oximetry 100 100 10/27/19 14:15 10/27/19 14:24 10/27/19 16:00 Temperature Pulse Rate 110 H 110 H 105 H Respiratory Rate 17 16 24 H Blood Pressure 169/79 H Pulse Oximetry 94 10/27/19 16:50 10/27/19 18:00 10/27/19 18:32 Temperature Pulse Rate 106 H 111 H Respiratory Rate 21 H 22 H Blood Pressure 145/91 H Pulse Oximetry 95 92 10/27/19 19:10 10/27/19 19:13 10/27/19 19:20 Temperature Pulse Rate 106 H 96 102 H Respiratory Rate 18 17 18 Blood Pressure Pulse Oximetry 99 10/27/19 20:00 10/27/19 22:00 10/27/19 22:36 Temperature 36.7 C Pulse Rate 91 87 95 Respiratory Rate 13 12 17 Blood Pressure 144/81 H 117/93 H Pulse Oximetry 99 95 95 10/28/19 00:00 10/28/19 02:00 10/28/19 02:39 Temperature 36.7 C Pulse Rate 88 99 106 H Respiratory Rate 13 19 18 Blood Pressure 141/78 H 173/73 H Pulse Oximetry 95 96 10/28/19 02:42 10/28/19 04:00 10/28/19 05:45 Temperature 36.8 C Pulse Rate 95 77 76 Respiratory Rate 21 H 13 14 Blood Pressure 117/65 Pulse Oximetry 98 100 95 10/28/19 06:00 10/28/19 07:40 10/28/19 08:00 Temperature 36.3 C L Pulse Rate 82 84 124 H Respiratory Rate 20 23 H 25 H Blood Pressure 103/59 L 145/92 H Pulse Oximetry 93 94 96 10/28/19 08:08 10/28/19 09:00 10/28/19 10:00 Temperature Pulse Rate 89 88 111 H Respiratory Rate 20 25 H 19 Blood Pressure 134/60 Pulse Oximetry 94 100 10/28/19 11:15 10/28/19 12:00 Temperature 36.9 C Pulse Rate 87 109
[2019-10-28] MEDS: ENOXAPARIN 40 MG/0.4 ML SYRINGE SUB-Q (12:30)
[2019-10-28 12:31] LABS: Glucose Point of Care 112 (65-105)
[2019-10-28] MEDS: SODIUM CHLORIDE 0.9% IV 1,000 ML 75 ML IV CONT (12:31)
[2019-10-28] MEDS: levoFLOXacin 500 MG/D5W 100 ML 500 MG/100 ML BAG 100 MG IVPB (14:07)
[2019-10-28 17:30] LABS: Glucose Point of Care 117 (65-105)
[2019-10-29] VITALS (27 sets, daily range): BP systolic 94–159; BP diastolic 53–89; PULSE 63–120; RESP 10–28; TEMP 36.7–37.1; O2SAT 93–99
--- NOTE | 2019-10-29 | ECHO_ITS ---
Patient Info Name: Taz Ambrocio Age: 79 years : 1940 Gender: Male Ht: 66 in Wt: 142 lbs BSA: 1.74 m2 HR: 69 bpm Heart Rhythm: Sinus Rhythm Technical Quality: Good Exam Date: 10/29/2019 8:10 AM Exam Location: [facility] Patient Status: Inpatient Admit Date: 10/27/2019 Staff Ordering Physician: Blake Pimentel MD Slab Puller: Gerard Ruth, DIANNE, RT Attending Provider: Carol Blackwell MD Referring Physician: Margarito MCKNIGHT; Exam Type: CA echo doppler color flow Study Info Indications R07.89 - Other chest pain Complete two-dimensional, color flow and Doppler transthoracic echocardiogram is performed with contrast to opacify the left ventrical and to improve the deliniation of the left ventrical endocarial boarders. Complete two-dimensional, color flow and Doppler transthoracic echocardiogram is performed. Summary 1. Left ventricular systolic function is normal, estimated at 55-60%. 2. There is no increased left ventricular wall thickness. 3. Left ventricular septal wall motion is abnormal with septal motion related to bundle branch block. 4. The left ventricular diastolic function is grade I diastolic dysfunction. 5. Right ventricular chamber dimension is moderately enlarged. 6. There is trace mitral valve regurgitation. 7. The mitral valve annulus is mildly calcified. 8. There is no aortic valve stenosis. 9. Dilated inferior vena cava with >50% collapse upon inspiration consistent with elevated right atrial pressure, 10 mmHg. 10. Technically difficult study with limited views. Regional wall motion assessment limited due to poor endomyocardial border definition. 11. There is trace tricuspid valve regurgitation. 12. Unable to estimate PA systolic pressure due to poor spectral resolution of tricuspid regurgitant jet velocity. Left Ventricle Left ventricular chamber dimension is normal. Left ventricular systolic function is normal, estimated at 55-60%. There is no increased left ventricular wall thickness. Left ventricular septal wall motion is abnormal with septal motion related to bundle branch block. The left ventricular diastolic function is grade I diastolic dysfunction. Technically difficult study with limited views. Regional wall motion assessment limited due to poor endomyocardial border definition. Right Ventricle Right ventricular chamber dimension is moderately enlarged. Right ventricular systolic function is normal. Left Atria Left atrial chamber dimension is not well visualized. Right Atria Right atrial chamber dimension is normal. Aortic Valve The aortic valve is not well visualized. There is no aortic valve stenosis. Pulmonic Valve The pulmonic valve is not well visualized. There is trace pulmonic regurgitation. Mitral Valve The mitral valve has thickened leaflets. There is trace mitral valve regurgitation. The mitral valve annulus is mildly calcified. Tricuspid Valve The tricuspid valve leaflets are normal. There is trace tricuspid valve regurgitation. Unable to estimate PA systolic pressure due to poor spectral resolution of tricuspid regurgitant jet velocity. Pericardium/Pleural The pericardium appears normal. There is trivial pericardial effusion. Inferior Vena Cava Dilated inferior vena cava with >50% collapse upon inspiration consistent with elevated right atrial pressure, 10 mmHg. Aorta The aortic root size at the sinus of Valsalva is normal. There is mild aortic atherosclerosis. Left Ventricu
[2019-10-29] MEDS: SODIUM CHLORIDE 0.9% IV 1,000 ML 75 ML IV CONT (01:24)
[2019-10-29] MEDS: ALBUTEROL SULFATE NEB 2.5 MG/0.5 ML INH INHALATION ×4 (02:17→21:16)
[2019-10-29] MEDS: IPRATROPIUM BR 0.02% INH SOLN 0.5 MG/2.5 ML VIAL INHALATION ×4 (02:18→21:16)
[2019-10-29] MEDS: methylPREDNISolone SOD SUCC 125 MG VIAL 60 MG IV PUSH ×2 (03:11→15:15)
[2019-10-29 04:49] LABS: Hematocrit 35.3 % (42.0-52.0); Hemoglobin 11.8 g/dL (14.0-18.0); Mean Corpuscular HGB Conc 33.4 g/dl (32-36); Mean Corpuscular Hemoglobin 30.9 pg (26-34); Mean Corpuscular Volume 92.4 fl (80-100); Platelet Count Result 162 k/mm3 (150-375); Red Blood Count 3.82 M/mm3 (4.6-6.20); Red Cell Distribution Width 11.9 % (11.5-14.5); White Blood Count 7.3 K/mm3 (4.5-10.0)
[2019-10-29 05:23] LABS: Alanine Aminotransferase 30 U/L (4-50); Albumin Level 3.2 g/dL (3.5-5.1); Alkaline Phosphatase 52 U/L (38-126); Aspartate Amino Transferase 40 U/L (17-59); Bilirubin,Total 0.4 mg/dL (0.2-1.3); Blood Urea Nitrogen 34 mg/dL (9-20); Calcium 8.5 mg/dL (8.4-10.2); Carbon Dioxide > 40 mmol/L (22-30); Chloride 79 mmol/L (98-107); Estimated CRCL calculation 54 ml/min; Estimated Glomerular Filt Rate > 60; Glucose 118 mg/dL (75-110); Magnesium 2.3 mg/dL (1.6-2.3); Potassium 4.4 mmol/L (3.4-5.0); Sodium 125 mmol/L (137-145)
[2019-10-29 06:17] LABS: Alveolar/Arterial O2 Gradient 71.6 mmHg; Base Excess ABG 13.2 mEq/l (+/-2.0); Carboxyhemoglobin 0.3 % THb (0-2.0); Fractional Inspired Oxygen 30 %; HCO3 ABG 39.3 mEq/l (22.0-26.0); Methemoglobin ABG 0.4 %THb (0-1.5); Oxygen Content ABG 17.9 %vol (16.0-22.0); Oxygen Saturation ABG 95.9 % (95.0-100.0); Oxyhemoglobin 94.8 % THb (90.0-100.0); PCO2 ABG 55.3 mmHg (35.0-45.0); PO2 ABG 77.3 mmHg (80.0-100.0); PO2 FiO2 Ratio Arterial Blood 2.58 %; Reduced Hemoglobin 4.5 %THb (0-5.0); Total Hemoglobin 13.4 g/dL (12.0-18.0); pH ABG 7.469 (7.350-7.450)
[2019-10-29 06:18] LABS: Device NON-INVASIVE VENT; Modified Allen's Test Pass; Non-Invasive Expiratory Pressure 6 CMH2O; Non-Invasive Inspiratory Pressure 14 CMH2O; Non-Invasive Vent Rate 10 /MIN; Site Drawn LEFT RADIAL
[2019-10-29] MEDS: PANTOPRAZOLE 40 MG TABLET PO (09:38)
[2019-10-29] MEDS: SILDENAFIL CITRATE 20 MG TABLET PO ×3 (09:38→19:03)
[2019-10-29] MEDS: ENOXAPARIN 40 MG/0.4 ML SYRINGE SUB-Q (09:39)
[2019-10-29] MEDS: LOVASTATIN 20 MG TABLET PO (09:39)
[2019-10-29 10:22] LABS: Glucose Point of Care 130 (65-105)
--- NOTE | 2019-10-29 11:16 | WPDINTPN ---
Progress Note: A&P Assessment and Plan (1) Acute and chronic respiratory failure: Code(s): J96.20 - Acute and chronic respiratory failure, unspecified whether with hypoxia or hypercapnia Status: Acute Assessment and Plan: Acute on chronic Respiratory failure secondary to AECOPD - patient was on BiPAP yesterday and overnight. - ABGs much improved this morning, patient on BiPAP 14/6, 30% FiO2. - will give patient a break from BiPAP in place him on nasal cannula, discussed with patient and family that he will put him on BiPAP intermittently and alternate with nasal cannula. - Continue BiPAP as needed - CT Chest reviewed - continue Steroids, bronchodilators, empiric Levaquin - WBC Normal - Blood Cx x 2 no growth - Influenza negative - will start patient on clear liquid diet - wean Precedex infusion (2) Acute exacerbation of chronic obstructive pulmonary disease: Code(s): J44.1 - Chronic obstructive pulmonary disease with (acute) exacerbation Status: Acute Assessment and Plan: see above (3) GERD (gastroesophageal reflux disease): Code(s): K21.9 - Gastro-esophageal reflux disease without esophagitis Status: Chronic Assessment and Plan: continue PPI (4) HTN (hypertension): Code(s): I10 - Essential (primary) hypertension Status: Chronic Assessment and Plan: blood pressure adequately controlled at this time treat p.r.n. (5) Hyperlipidemia: Code(s): E78.5 - Hyperlipidemia, unspecified Status: Chronic Assessment and Plan: continue statin (6) Carotid stenosis: Code(s): I65.29 - Occlusion and stenosis of unspecified carotid artery Status: Acute Assessment and Plan: continue aspirin and statin (7) Ventricular arrhythmia: Code(s): I49.9 - Cardiac arrhythmia, unspecified Status: Acute Assessment and Plan: per report from outside hospital physician patient had a run of nonsustained V-tach. Currently in sinus tach with PVCs. - potassium and magnesium within normal limits - Troponins on presentation were normal - continue Aspirin (8) Pulmonary hypertension: Code(s): I27.20 - Pulmonary hypertension, unspecified Status: Acute Assessment and Plan: Continue Revatio Additional Plan DVT prophylaxis - Lovenox Stress ulcer prophylaxis - PPI Nutrition - liquid diet, will add Ensure Patient's family updated at bedside Code Status - DNR/DNI Total Critical Care Time - 33 minutes Due to a high probability of clinically significant, life threatening deterioration, the patient required my highest level of preparedness to intervene emergently and I personally spent this critical care time directly and personally managing the patient. This critical care time included obtaining a history; examining the patient; pulse oximetry; ordering and review of studies; arranging urgent treatment with development of a management plan; evaluation of patient's response to treatment; frequent reassessment; and discussions with other providers. It was exclusive of separately billable procedures and treating other patients and teaching time. Please see Assessment and Plan section and the rest of the note for further information on patient assessment and treatment Subjective Date/time seen: 10/29/19 11:16 Interval history: REASON FOR CONSULT: AECOPD, acute hypercarbic respiratory failure requiring BiPAP 10/29/2019: Patient seen and examined this morning. ABGs look much better, patient feels better, hemodynamically stable, slightly tachycardic. Urine output has been adequate. Patient on BiPAP 14/6, 30% FiO2. Denies any chest pain, abdominal pain, nausea, vomiting at this time Review of Systems Review of Systems: All systems reviewed & are unremarkable except as noted in HPI and below Exam Narrative: Exam Narrative: General: Pt is awake and alert. Follows commands. Not in any
[2019-10-29 12:01] LABS: Glucose Point of Care 136 (65-105)
[2019-10-29] MEDS: ASPIRIN 325 MG TABLET PO (13:40)
[2019-10-29] MEDS: levoFLOXacin 500 MG/D5W 100 ML 500 MG/100 ML BAG 100 MG IVPB (15:15)
[2019-10-29 17:31] LABS: Glucose Point of Care 128 (65-105)
--- NOTE | 2019-10-29 18:01 | PM.IMPN ---
Progress Note: A&P Assessment and Plan (1) Acute and chronic respiratory failure: Code(s): J96.20 - Acute and chronic respiratory failure, unspecified whether with hypoxia or hypercapnia Status: Acute Assessment and Plan: With hypercapnia. Responding well to BiPAP almost over compensated some automotive parts counter assistant will back off BiPAP as well as Precedex and try to wean back totally to O2 nasal cannula (2) Acute exacerbation of chronic obstructive pulmonary disease: Code(s): J44.1 - Chronic obstructive pulmonary disease with (acute) exacerbation Status: Acute Assessment and Plan: Continue BiPAP, updrafts, steroids, and antibiotics (3) HTN (hypertension): Code(s): I10 - Essential (primary) hypertension Status: Chronic Assessment and Plan: Pressure fine at present time hold on his Elvin and diuretic (4) CHF (congestive heart failure): Code(s): I50.9 - Heart failure, unspecified Status: Acute Assessment and Plan: EF 55%. Suspect the has pulmonary hypertension since he is on sildenafil but could not determine definitely from echo today although right atrial pressure was increased and right ventricle was increased in size (5) Hyponatremia: Code(s): E87.1 - Hypo-osmolality and hyponatremia Status: Acute Assessment and Plan: Hold diuretic rest and mild hydration with saline (6) DVT prophylaxis: Code(s): Z29.9 - Encounter for prophylactic measures, unspecified Status: Acute Assessment and Plan: Lovenox Subjective Date/time seen: 10/29/19 18:01 Interval history: Date of visit 10/28. 79-year-old hypertensive white male with severe COPD admitted with increasing cough shortness of breath and respiratory distress. Date was transferred from [facility] even though his pharmacy innovation assistant and thoracic surgeon are at [place]. Today patient is comfortable on a BiPAP maintaining O2 sats and latest blood gas CO2 has dropped to 55 probable better than usual baselilne Exam Narrative: Exam Narrative: Blood pressure 132/62 pulse is 72 regular respirations 16 per minute satting 92% to 94% on the BiPAP Pupils equal reactive to light sclera anicteric Lungs clear prolonged expiratory phase, distant breath sounds, and better air movement today CV regular rate rhythm Abdomen benign Extremities without edema Neuro on low dose Precedex but alert and conversing Objective Data Vital Signs Vital Signs: Vital Signs - 24 hr 10/28/19 20:00 10/28/19 20:28 10/28/19 20:48 Temperature Pulse Rate 91 99 95 Respiratory Rate 12 32 H 27 H Blood Pressure 117/76 Pulse Oximetry 99 95 10/28/19 22:00 10/28/19 23:17 10/29/19 00:00 Temperature Pulse Rate 85 85 80 Respiratory Rate 12 25 H 11 L Blood Pressure 115/63 128/61 Pulse Oximetry 95 96 97 10/29/19 02:00 10/29/19 02:18 10/29/19 02:26 Temperature Pulse Rate 63 70 72 Respiratory Rate 11 L 10 L 12 Blood Pressure 94/53 L Pulse Oximetry 97 97 10/29/19 04:00 10/29/19 05:44 10/29/19 05:55 Temperature 36.7 C Pulse Rate 65 88 Respiratory Rate 22 H Blood Pressure 114/74 Pulse Oximetry 97 10/29/19 06:00 10/29/19 06:19 10/29/19 08:00 Temperature Pulse Rate 96 92 89 Respiratory Rate 26 H 22 H 24 H Blood Pressure 159/84 H 148/72 H Pulse Oximetry 93 95 99 10/29/19 08:02 10/29/19 08:03 10/29/19 08:17 Temperature Pulse Rate 86 86 72 Respiratory Rate 22 H 22 H 14 Blood Pressure Pulse Oximetry 97 10/29/19 08:55 10/29/19 10:00 10/29/19 10:12 Temperature Pulse Rate 107 H Respiratory Rate 25 H Blood Pressure 146/78 H Pulse Oximetry 94 93 94 10/29/19 12:00 10/29/19 14:00 10/29/19 14:33 Temperature 37.1 C Pulse Rate 104 H 107 H 111 H Respiratory Rate 25 H 26 H 20 Blood Pressure 150/89 H 153/79 H Pulse Oximetry 96 98 10/29/19 14:51 Temperature Pulse Rate 103 H Respiratory Rate 22 H Blood Pressure Pulse Oximetry
[2019-10-29 21:09] LABS: Glucose Point of Care 147 (65-105)
[2019-10-29 23:19] LABS: Glucose Point of Care 146 (65-105)
[2019-10-30] VITALS (25 sets, daily range): BP systolic 141–181; BP diastolic 60–91; PULSE 69–137; RESP 12–30; TEMP 36.5–37.1; O2SAT 95–100
[2019-10-30] MEDS: methylPREDNISolone SOD SUCC 125 MG VIAL 60 MG IV PUSH ×2 (01:41→13:06)
[2019-10-30] MEDS: IPRATROPIUM BR 0.02% INH SOLN 0.5 MG/2.5 ML VIAL INHALATION ×4 (03:09→20:54)
[2019-10-30] MEDS: ALBUTEROL SULFATE NEB 2.5 MG/0.5 ML INH INHALATION ×4 (03:09→20:54)
[2019-10-30 05:00] LABS: Hematocrit 39.6 % (42.0-52.0); Hemoglobin 13.2 g/dL (14.0-18.0); Mean Corpuscular HGB Conc 33.3 g/dl (32-36); Mean Corpuscular Hemoglobin 31.1 pg (26-34); Mean Corpuscular Volume 93.4 fl (80-100); Mean Platelet Volume 9.6 fl (7.4-10.4); Platelet Count Result 218 k/mm3 (150-375); Red Blood Count 4.24 M/mm3 (4.6-6.20); Red Cell Distribution Width 11.9 % (11.5-14.5)
[2019-10-30 05:18] LABS: Alanine Aminotransferase 31 U/L (4-50); Albumin Level 3.5 g/dL (3.5-5.1); Alkaline Phosphatase 58 U/L (38-126); Aspartate Amino Transferase 39 U/L (17-59); Bilirubin,Total 0.4 mg/dL (0.2-1.3); Blood Urea Nitrogen 25 mg/dL (9-20); Calcium 8.6 mg/dL (8.4-10.2); Carbon Dioxide > 40 mmol/L (22-30); Chloride 79 mmol/L (98-107); Estimated CRCL calculation 60 ml/min; Estimated Glomerular Filt Rate > 60; Glucose 125 mg/dL (75-110); Magnesium 2.1 mg/dL (1.6-2.3); Potassium 4.9 mmol/L (3.4-5.0); Sodium 128 mmol/L (137-145)
[2019-10-30 05:39] LABS: Alveolar/Arterial O2 Gradient 34.4 mmHg; Base Excess ABG 11.3 mEq/l (+/-2.0); Carboxyhemoglobin 0.2 % THb (0-2.0); Fractional Inspired Oxygen 32 %; HCO3 ABG 40.6 mEq/l (22.0-26.0); Methemoglobin ABG 0.4 %THb (0-1.5); Oxygen Content ABG 19.5 %vol (16.0-22.0); Oxygen Saturation ABG 97.1 % (95.0-100.0); Oxyhemoglobin 96.5 % THb (90.0-100.0); PO2 FiO2 Ratio Arterial Blood 3.22 %; Reduced Hemoglobin 2.9 %THb (0-5.0); Total Hemoglobin 14.3 g/dL (12.0-18.0); pH ABG 7.337 (7.350-7.450)
[2019-10-30 05:41] LABS: Device NASAL CANNULA; Modified Allen's Test Pass; PCO2 ABG 77.6 mmHg (35.0-45.0); Site Drawn LEFT RADIAL
[2019-10-30] MEDS: LOVASTATIN 20 MG TABLET PO (07:46)
[2019-10-30] MEDS: ASPIRIN 325 MG TABLET PO (07:46)
[2019-10-30] MEDS: PANTOPRAZOLE 40 MG TABLET PO (07:46)
[2019-10-30] MEDS: ENOXAPARIN 40 MG/0.4 ML SYRINGE SUB-Q (07:46)
[2019-10-30] MEDS: SILDENAFIL CITRATE 20 MG TABLET PO ×3 (07:46→17:47)
[2019-10-30 07:54] LABS: Glucose Point of Care 124 (65-105)
--- NOTE | 2019-10-30 08:03 | PM.IMPN ---
Progress Note: A&P Assessment and Plan (1) Acute and chronic respiratory failure: Qualifiers: Respiratory failure complication: hypercapnia Qualified Code(s): J96.22 - Acute and chronic respiratory failure with hypercapnia Code(s): J96.20 - Acute and chronic respiratory failure, unspecified whether with hypoxia or hypercapnia Status: Acute Assessment and Plan: Hypercapnea improving Trial off bipap this AM Advance diet if tolerated (2) Acute exacerbation of chronic obstructive pulmonary disease: Code(s): J44.1 - Chronic obstructive pulmonary disease with (acute) exacerbation Status: Acute Assessment and Plan: Continue BiPAP, updrafts, steroids, and antibiotics (3) HTN (hypertension): Qualifiers: Hypertension type: essential hypertension Qualified Code(s): I10 - Essential (primary) hypertension Code(s): I10 - Essential (primary) hypertension Status: Chronic Assessment and Plan: ACEI and diuretic on hold (4) CHF (congestive heart failure): Qualifiers: Heart failure type: diastolic Heart failure chronicity: chronic Qualified Code(s): I50.32 - Chronic diastolic (congestive) heart failure Code(s): I50.9 - Heart failure, unspecified Status: Acute Assessment and Plan: EF 55%. Suspect the has pulmonary hypertension since he is on sildenafil but could not determine definitely from echo although right atrial pressure was increased and right ventricle was increased in size (5) Hyponatremia: Code(s): E87.1 - Hypo-osmolality and hyponatremia Status: Acute Assessment and Plan: Improved with holding diuretic and hydration with saline 3/3 128 Subjective Date/time seen: 10/30/19 08:03 Interval history: Mild low back ache. Otherwise no c/o pain. Mild nose bleed when blowing nose. No other abnormal bleeding. Review of Systems Review of Systems: All systems reviewed & are unremarkable except as noted in HPI and below Exam Narrative: Exam Narrative: HEENT: EOMI, PERRL, pharyngeal mucosa pink and intact NECK: No JVD, adenopathy, or thyromegaly CHEST: Increased APD. Diminished BS throughout HEART: NL S1/S2, regular, no murmur ABDOMEN: BS+, soft, nontender, no mass, no bruits EXTREMITIES: No cyanosis, edema, or clubbing NEUROLOGIC: CN intact and symmetric to inspection. MUSCULOSKELETAL: Tone and strength symmetric. PSYCH: Alert. Oriented to person, place, and time. Objective Data Vital Signs Vital Signs: Vital Signs - 24 hr 10/29/19 08:17 10/29/19 08:55 10/29/19 10:00 Temperature Pulse Rate 72 107 H Respiratory Rate 14 25 H Blood Pressure 146/78 H Pulse Oximetry 94 93 10/29/19 10:12 10/29/19 12:00 10/29/19 14:00 Temperature 98.8 F Pulse Rate 104 H 107 H Respiratory Rate 25 H 26 H Blood Pressure 150/89 H 153/79 H Pulse Oximetry 94 96 98 10/29/19 14:33 10/29/19 14:51 10/29/19 16:00 Temperature 98.8 F Pulse Rate 111 H 103 H 109 H Respiratory Rate 20 22 H 16 Blood Pressure 145/66 H Pulse Oximetry 97 10/29/19 18:00 10/29/19 20:00 10/29/19 21:19 Temperature 98.0 F Pulse Rate 108 H 120 H 111 H Respiratory Rate 23 H 24 H 28 H Blood Pressure 152/66 H 134/57 L Pulse Oximetry 93 95 10/29/19 21:22 10/29/19 21:29 10/29/19 22:00 Temperature 98.0 F Pulse Rate 111 H 114 H 110 H Respiratory Rate 21 H 28 H 24 H Blood Pressure 131/77 Pulse Oximetry 94 95 10/30/19 00:00 10/30/19 02:00 10/30/19 03:12 Temperature 98.4 F Pulse Rate 94 102 H 79 Respiratory Rate 16 24 H 27 H Blood Pressure 147/75 H 149/72 H Pulse Oximetry 96 100 10/30/19 03:13 10/30/19 03:22 10/30/19 04:00 Temperature 98.3 F Pulse Rate 79 79 69 Respiratory Rate 27 H 25 H 12 Blood Pressure 141/60 H Pulse Oximetry 97 98 10/30/19 06:00 10/30/19 07:56 Temperature Pulse Rate 111 H 111 H Respiratory Rate 20 20 Blood Pressure 176/83 H Pulse Oximetry 96 97
--- NOTE | 2019-10-30 08:27 | PCOTNOTE ---
Attempted to see for OT evaluation. Per RN, patient is on bipap due to abnormal CO2. RN recommends bed rest for now. Will continue to attempt.
--- NOTE | 2019-10-30 09:05 | PCPTNOTE ---
Attempted to see for PT evaluation. Unable due to patient currently on bipap due to abnormal CO2. RN recommends bed rest for now. Will try again at a later date.
[2019-10-30 11:25] LABS: Glucose Point of Care 142 (65-105)
--- NOTE | 2019-10-30 11:52 | WPDINTPN ---
Progress Note: A&P Assessment and Plan (1) Acute and chronic respiratory failure: Qualifiers: Respiratory failure complication: hypercapnia Qualified Code(s): J96.22 - Acute and chronic respiratory failure with hypercapnia Code(s): J96.20 - Acute and chronic respiratory failure, unspecified whether with hypoxia or hypercapnia Status: Acute Assessment and Plan: Acute on chronic Respiratory failure secondary to AECOPD - patient was given a break from BiPAP all day yesterday, this morning pCO2 was 77 with a pH of 7.33. Patient was placed back on BiPAP 14/6, 30% FiO2. - Will continue alternating between BiPAP and nasal cannula - continue Steroids, bronchodilators, empiric Levaquin - WBC Normal - Blood Cx x 2 no growth - Influenza negative - patient is off Precedex infusion (2) Acute exacerbation of chronic obstructive pulmonary disease: Code(s): J44.1 - Chronic obstructive pulmonary disease with (acute) exacerbation Status: Acute Assessment and Plan: see above (3) GERD (gastroesophageal reflux disease): Code(s): K21.9 - Gastro-esophageal reflux disease without esophagitis Status: Chronic Assessment and Plan: continue PPI (4) HTN (hypertension): Qualifiers: Hypertension type: essential hypertension Qualified Code(s): I10 - Essential (primary) hypertension Code(s): I10 - Essential (primary) hypertension Status: Chronic Assessment and Plan: blood pressure adequately controlled at this time treat p.r.n. (5) Hyperlipidemia: Code(s): E78.5 - Hyperlipidemia, unspecified Status: Chronic Assessment and Plan: continue statin (6) Carotid stenosis: Code(s): I65.29 - Occlusion and stenosis of unspecified carotid artery Status: Acute Assessment and Plan: continue aspirin and statin (7) Ventricular arrhythmia: Code(s): I49.9 - Cardiac arrhythmia, unspecified Status: Acute Assessment and Plan: per report from outside hospital physician patient had a run of nonsustained V-tach. Currently in sinus tach with PVCs. - potassium and magnesium within normal limits - Troponins on presentation were normal - continue Aspirin (8) Pulmonary hypertension: Code(s): I27.20 - Pulmonary hypertension, unspecified Status: Acute Assessment and Plan: Continue Revatio Additional Plan DVT prophylaxis - Lovenox Stress ulcer prophylaxis - PPI Nutrition - will increase to mechanical soft, continue Ensure PT/OT has been consulted Patient's family updated at bedside Code Status - DNR/DNI Total Critical Care Time - 32 minutes Due to a high probability of clinically significant, life threatening deterioration, the patient required my highest level of preparedness to intervene emergently and I personally spent this critical care time directly and personally managing the patient. This critical care time included obtaining a history; examining the patient; pulse oximetry; ordering and review of studies; arranging urgent treatment with development of a management plan; evaluation of patient's response to treatment; frequent reassessment; and discussions with other providers. It was exclusive of separately billable procedures and treating other patients and teaching time. Please see Assessment and Plan section and the rest of the note for further information on patient assessment and treatment Subjective Date/time seen: 10/30/19 11:52 Interval history: REASON FOR CONSULT: AECOPD, acute hypercarbic respiratory failure requiring BiPAP 10/30/2019: Patient seen and examined this morning. Patient was off BiPAP almost whole day yesterday, this morning patient is ABG showed a pCO2 of 77 and was placed back on BiPAP this morning. Is awake, alert, follows simple commands, hemodynamically stable with adequate urine output. Patient also had a bowel movement. Patient d
[2019-10-30] MEDS: levoFLOXacin 500 MG/D5W 100 ML 500 MG/100 ML BAG 100 MG IVPB (13:04)
[2019-10-30] MEDS: SODIUM CHLORIDE NASAL GEL 14.1 GM 1 APPLIC NASAL ×2 (13:05→13:07)
[2019-10-30] MEDS: hydrALAZINE HCL 20 MG/ML VIAL 10 MG IV PUSH (14:07)
[2019-10-30 17:55] LABS: Glucose Point of Care 159 (65-105)
[2019-10-31] VITALS (26 sets, daily range): BP systolic 143–167; BP diastolic 62–79; PULSE 73–132; RESP 12–30; TEMP 36.3–37; O2SAT 95–100
[2019-10-31 00:18] LABS: Glucose Point of Care 175 (65-105)
[2019-10-31] MEDS: methylPREDNISolone SOD SUCC 125 MG VIAL 60 MG IV PUSH ×2 (02:11→15:00)
[2019-10-31] MEDS: IPRATROPIUM BR 0.02% INH SOLN 0.5 MG/2.5 ML VIAL INHALATION ×4 (03:07→20:30)
[2019-10-31] MEDS: ALBUTEROL SULFATE NEB 2.5 MG/0.5 ML INH INHALATION ×4 (03:08→20:30)
[2019-10-31 04:43] LABS: Hematocrit 39.2 % (42.0-52.0); Hemoglobin 12.7 g/dL (14.0-18.0); Mean Corpuscular HGB Conc 32.4 g/dl (32-36); Mean Corpuscular Hemoglobin 30.9 pg (26-34); Mean Corpuscular Volume 95.4 fl (80-100); Mean Platelet Volume 10.2 fl (7.4-10.4); Platelet Count Result 216 k/mm3 (150-375); Red Blood Count 4.11 M/mm3 (4.6-6.20); Red Cell Distribution Width 12.1 % (11.5-14.5); White Blood Count 8.5 K/mm3 (4.5-10.0)
[2019-10-31 05:12] LABS: Alanine Aminotransferase 30 U/L (4-50); Albumin Level 3.3 g/dL (3.5-5.1); Alkaline Phosphatase 59 U/L (38-126); Aspartate Amino Transferase 34 U/L (17-59); Bilirubin,Total 0.4 mg/dL (0.2-1.3); Blood Urea Nitrogen 27 mg/dL (9-20); Calcium 8.8 mg/dL (8.4-10.2); Carbon Dioxide > 40 mmol/L (22-30); Chloride 80 mmol/L (98-107); Estimated CRCL calculation 78 ml/min; Estimated Glomerular Filt Rate > 60; Glucose 119 mg/dL (75-110); Potassium 4.7 mmol/L (3.4-5.0); Sodium 130 mmol/L (137-145)
[2019-10-31 05:45] LABS: Alveolar/Arterial O2 Gradient 57.8 mmHg; Carboxyhemoglobin 0.1 % THb (0-2.0); Fractional Inspired Oxygen 30 %; HCO3 ABG 41.6 mEq/l (22.0-26.0); Methemoglobin ABG 0.3 %THb (0-1.5); Oxygen Content ABG 18.1 %vol (16.0-22.0); Oxygen Saturation ABG 93.3 % (95.0-100.0); Oxyhemoglobin 93.2 % THb (90.0-100.0); PO2 ABG 71.3 mmHg (80.0-100.0); PO2 FiO2 Ratio Arterial Blood 2.38 %; Reduced Hemoglobin 6.4 %THb (0-5.0); Total Hemoglobin 13.8 g/dL (12.0-18.0); pH ABG 7.378 (7.350-7.450)
[2019-10-31 05:47] LABS: Device NON-INVASIVE VENT; Non-Invasive Expiratory Pressure 6 CMH2O; Non-Invasive Inspiratory Pressure 14 CMH2O; Non-Invasive Vent Rate 10 /MIN; PCO2 ABG 72.2 mmHg (35.0-45.0); Site Drawn RIGHT BRACHIAL
[2019-10-31] MEDS: LOVASTATIN 20 MG TABLET PO (08:48)
[2019-10-31] MEDS: ENOXAPARIN 40 MG/0.4 ML SYRINGE SUB-Q (08:48)
[2019-10-31] MEDS: SILDENAFIL CITRATE 20 MG TABLET PO ×3 (08:48→16:09)
[2019-10-31] MEDS: PANTOPRAZOLE 40 MG TABLET PO (08:48)
[2019-10-31] MEDS: SODIUM CHLORIDE NASAL GEL 14.1 GM 1 APPLIC NASAL ×2 (08:49→16:09)
[2019-10-31] MEDS: ASPIRIN 325 MG TABLET PO (08:49)
--- NOTE | 2019-10-31 08:53 | PM.IMPN ---
Progress Note: A&P Assessment and Plan (1) Acute and chronic respiratory failure: Qualifiers: Respiratory failure complication: hypercapnia Qualified Code(s): J96.22 - Acute and chronic respiratory failure with hypercapnia Code(s): J96.20 - Acute and chronic respiratory failure, unspecified whether with hypoxia or hypercapnia Status: Acute Assessment and Plan: Hypercapnea improving Seems to be a good Trilogy candidate To IMU 10/30 (2) Acute exacerbation of chronic obstructive pulmonary disease: Code(s): J44.1 - Chronic obstructive pulmonary disease with (acute) exacerbation Status: Acute Assessment and Plan: Continue BiPAP, updrafts, steroids, and antibiotics (3) HTN (hypertension): Qualifiers: Hypertension type: essential hypertension Qualified Code(s): I10 - Essential (primary) hypertension Code(s): I10 - Essential (primary) hypertension Status: Chronic Assessment and Plan: ACEI and diuretic on hold (4) CHF (congestive heart failure): Qualifiers: Heart failure type: diastolic Heart failure chronicity: chronic Qualified Code(s): I50.32 - Chronic diastolic (congestive) heart failure Code(s): I50.9 - Heart failure, unspecified Status: Acute Assessment and Plan: EF 55%. (5) Hyponatremia: Code(s): E87.1 - Hypo-osmolality and hyponatremia Status: Acute Assessment and Plan: Improved with holding diuretic and hydration with saline 10/29 128, 10/30 130 (6) Pulmonary hypertension: Code(s): I27.20 - Pulmonary hypertension, unspecified Status: Acute Assessment and Plan: Continue sildenafil Subjective Date/time seen: 10/31/19 08:53 Interval history: Feels better. Eating well. ROTHMAN with minimal exertion. Tolerates BiPAP. Uses it while sleeping and intermittently throughout the day. Denied pain. Review of Systems Review of Systems: All systems reviewed & are unremarkable except as noted in HPI and below Exam Narrative: Exam Narrative: HEENT: EOMI, PERRL, pharyngeal mucosa pink and intact NECK: No JVD, adenopathy, or thyromegaly CHEST: Increased APD. Diminished BS throughout HEART: NL S1/S2, regular, no murmur ABDOMEN: BS+, soft, nontender, no mass, no bruits EXTREMITIES: No cyanosis, edema, or clubbing NEUROLOGIC: CN intact and symmetric to inspection. MUSCULOSKELETAL: Tone and strength symmetric. PSYCH: Alert. Oriented to person, place, and time. Objective Data Vital Signs Vital Signs: Vital Signs - 24 hr 10/30/19 10:00 10/30/19 11:43 10/30/19 12:00 Temperature 98.8 F Pulse Rate 112 H 101 H 83 Respiratory Rate 15 25 H 15 Blood Pressure 176/65 H 147/76 H Pulse Oximetry 98 97 97 10/30/19 14:00 10/30/19 14:16 10/30/19 14:21 Temperature Pulse Rate 118 H 135 H 135 H Respiratory Rate 23 H 26 H 20 Blood Pressure 181/81 H Pulse Oximetry 95 97 10/30/19 14:31 10/30/19 16:00 10/30/19 17:20 Temperature 98.8 F Pulse Rate 137 H 132 H 120 H Respiratory Rate 20 30 H 19 Blood Pressure 145/71 H Pulse Oximetry 95 98 10/30/19 18:00 10/30/19 20:00 10/30/19 20:30 Temperature 97.7 F Pulse Rate 118 H 117 H 118 H Respiratory Rate 22 H 16 22 H Blood Pressure 170/66 H 163/76 H Pulse Oximetry 100 96 97 10/30/19 20:55 10/30/19 21:06 10/30/19 22:00 Temperature Pulse Rate 119 H 116 H 105 H Respiratory Rate 22 H 20 14 Blood Pressure 155/60 H Pulse Oximetry 98 10/31/19 00:00 10/31/19 02:00 10/31/19 03:08 Temperature 98.6 F Pulse Rate 110 H 110 H 106 H Respiratory Rate 20 20 19 Blood Pressure 152/79 H Pulse Oximetry 98 99 10/31/19 03:14 10/31/19 03:20 10/31/19 04:00 Temperature 97.7 F Pulse Rate 106 H 105 H 73 Respiratory Rate 21 H 25 H 12 Blood Pressure 143/72 H Pulse Oximetry 99 100 10/31/19 06:00 10/31/19 08:01 Temperature 97.6 F Pulse Rate 106 H 102 H Respiratory Rate 22 H 20 Blood Pressure 15
[2019-10-31 12:08] LABS: Glucose Point of Care 110 (65-105)
[2019-10-31] MEDS: levoFLOXacin 500 MG/D5W 100 ML 500 MG/100 ML BAG 100 MG IVPB (14:59)
--- NOTE | 2019-10-31 15:03 | PM.CNPUL ---
Assessment and Plan Assessment and plan (1) Acute and chronic respiratory failure: Qualifiers: Respiratory failure complication: hypercapnia Qualified Code(s): J96.22 - Acute and chronic respiratory failure with hypercapnia Code(s): J96.20 - Acute and chronic respiratory failure, unspecified whether with hypoxia or hypercapnia Status: Acute Assessment and Plan: He has end stage COPD, has not seen his pulmonary doctor for a year, has been using O2 p.r.n.; was turned down for Lung Volume Reduction surgery in [place] due to low EF. He was admitted at [facility] Feb 25 then transferred to [facility] when he deteriorated Feb 29. He was ICU until today, changed to IMU status, still in ICU 2 for now. PLAN: *He is an excellent candidate for Trilogy, for chronic respiratory failure due to end stage COPD. He is failing BiPAP, and cannot wear it indefinitely. Will arrange for the NPPV, and may adjust his BiPAP for use until the stars align and device appears. *adjust his home COPD meds to nebulized meds instead of Trelegy due to his end stage condition. Brovana, Budesonide, ipratropium QID and albuterol QD *He will need Home O2 evaluation before discharge and education about using O2 correctly, not as needed, as high O2 saturation can tip these fragile patients over the edge. *Wean O2 to keep sat 89-94%, now at 100% on 4 L/min. *He is asking for sleeping pill as he has not slept much since arrival, and uses Ambien nightly at home 10 mg---> this is worrisome as he is sedated every night without NPPV to help with CO2. He may be withdrawing from Ambien with rebound insomnia, tachycardia, hypertension and anxiety. Restart at lower dose and try to wean later. *Wean steroids, *Add Pulmozyme and Cornet valve, * Increase activity, as he is in bed all day every day getting weaker. *Check echo; he has h/o CHF, no echo in our system; this may be part of his poor status. *Stop Levaquin. Had out patient antibiotics and IV Levaquin for 5+ days. *records are forthcoming from his cardiothoracic team at [facility]; I spoke with nurse coordinator Krystian Kaba RN, BSN, SYSTEMS ENGINEERING MANAGER. (2) Pulmonary hypertension: Code(s): I27.20 - Pulmonary hypertension, unspecified Status: Acute Assessment and Plan: On sildenafil 20 mg TID per home med list, was prescribed by Dr. Brayden Wallis; recent echo 10/10/2019 showed decreased in RVSP 35 mm Hg after treatment with sildenafil, EF 58%. Normal LV systolic function. Mildly enlarged RV; Normal IV septum. Normal RA pressure. Mild NC. (3) Acute exacerbation of chronic obstructive pulmonary disease: Code(s): J44.1 - Chronic obstructive pulmonary disease with (acute) exacerbation Status: Acute Assessment and Plan: PFTs 03/29/2019 [facility] FEV1 26%, 0.73 L; 20% increased after bronchodilator up to 0.88 L, 31% predicted; TLC 151%, RV 224%, DLCO 71%. He has cardiopulmonary rehab; his avg O2 use with rehab was 30%. He has decreased exercise capacity, ventilatory limitation without cardiac limitation. (4) GERD (gastroesophageal reflux disease): Code(s): K21.9 - Gastro-esophageal reflux disease without esophagitis Status: Chronic Assessment and Plan: (5) HTN (hypertension): Qualifiers: Hypertension type: essential hypertension Qualified Code(s): I10 - Essential (primary) hypertension Code(s): I10 - Essential (primary) hypertension Status: Chronic Assessment and Plan: (6) Hyperlipidemia: Code(s): E78.5 - Hyperlipidemia, unspecified Status: Chronic Assessment and Plan: History of Present
[2019-10-31 17:12] LABS: Glucose Point of Care 97 (65-105)
[2019-10-31] MEDS: DORNASE ALFA INH SOLN 1 MG/ML 2.5 ML AMP 2.5 MG INHALATION (20:41)
[2019-10-31 23:47] LABS: Glucose Point of Care 126 (65-105)
[2019-11-01] VITALS (15 sets, daily range): BP systolic 116–148; BP diastolic 53–75; PULSE 68–128; RESP 16–27; TEMP 36.2–37.1; O2SAT 94–100
[2019-11-01] MEDS: methylPREDNISolone SOD SUCC 40 MG VIAL IV PUSH (01:33)
[2019-11-01] MEDS: ALBUTEROL SULFATE NEB 2.5 MG/0.5 ML INH INHALATION ×3 (01:40→20:28)
[2019-11-01] MEDS: IPRATROPIUM BR 0.02% INH SOLN 0.5 MG/2.5 ML VIAL INHALATION ×3 (01:40→20:29)
[2019-11-01 04:40] LABS: Hematocrit 37.7 % (42.0-52.0); Hemoglobin 12.1 g/dL (14.0-18.0); Mean Corpuscular HGB Conc 32.1 g/dl (32-36); Mean Corpuscular Hemoglobin 30.7 pg (26-34); Mean Corpuscular Volume 95.7 fl (80-100); Mean Platelet Volume 9.6 fl (7.4-10.4); Platelet Count Result 201 k/mm3 (150-375); Red Blood Count 3.94 M/mm3 (4.6-6.20); Red Cell Distribution Width 11.9 % (11.5-14.5); White Blood Count 8.2 K/mm3 (4.5-10.0)
[2019-11-01 04:58] LABS: Alanine Aminotransferase 31 U/L (4-50); Albumin Level 3.1 g/dL (3.5-5.1); Alkaline Phosphatase 53 U/L (38-126); Aspartate Amino Transferase 32 U/L (17-59); Bilirubin,Total 0.3 mg/dL (0.2-1.3); Blood Urea Nitrogen 24 mg/dL (9-20); Calcium 8.7 mg/dL (8.4-10.2); Carbon Dioxide > 40 mmol/L (22-30); Chloride 79 mmol/L (98-107); Estimated CRCL calculation 68 ml/min; Estimated Glomerular Filt Rate > 60; Glucose 160 mg/dL (75-110); Magnesium 1.9 mg/dL (1.6-2.3); Potassium 4.8 mmol/L (3.4-5.0); Sodium 129 mmol/L (137-145)
[2019-11-01 05:12] LABS: Alveolar/Arterial O2 Gradient 59.2 mmHg; Base Excess ABG 13.2 mEq/l (+/-2.0); Carboxyhemoglobin 0.4 % THb (0-2.0); Fractional Inspired Oxygen 30 %; HCO3 ABG 41.2 mEq/l (22.0-26.0); Methemoglobin ABG 0.3 %THb (0-1.5); Oxygen Content ABG 17.9 %vol (16.0-22.0); Oxygen Saturation ABG 94.1 % (95.0-100.0); Oxyhemoglobin 94.1 % THb (90.0-100.0); PO2 ABG 73.4 mmHg (80.0-100.0); PO2 FiO2 Ratio Arterial Blood 2.45 %; Reduced Hemoglobin 5.2 %THb (0-5.0); Total Hemoglobin 13.5 g/dL (12.0-18.0); pH ABG 7.393 (7.350-7.450)
[2019-11-01 05:14] LABS: Device NON-INVASIVE VENT; Modified Allen's Test Pass; PCO2 ABG 69.2 mmHg (35.0-45.0); Site Drawn LEFT RADIAL
[2019-11-01 05:15] LABS: Non-Invasive Expiratory Pressure 6 CMH2O; Non-Invasive Inspiratory Pressure 14 CMH2O; Non-Invasive Vent Rate 10 /MIN
--- NOTE | 2019-11-01 06:21 | CONS_ITS ---
DATE OF CONSULTATION: 10/31/2019 REASON FOR THE CONSULTATION: Dr. Lunsford consulted me to see this patient for severe COPD exacerbation, [id number] hypercapnic, hypoxemic respiratory failure. HISTORY: This gentleman is a 79-year-old male, who has been on oxygen off and on over the last 2 years. His , Sirisha, is at the bedside and his daughter, Dai. They assist with a history. Dr. Lunsford consulted me to see this patient, as he has end-stage COPD, has been in the hospital for over a week and is still having difficulties managing his CO2 retention. He was admitted for 3 days of increasing shortness of breath and failed outpatient antibiotics. He had some chest tightness that radiated to his neck, but not his arms. He normally was using 2 L of oxygen at home and started to require 3 L. His arterial blood gases initially were mildly off base, pH 7.33, pCO2 of 57.8, and a PO2 of 82.7 on 4 L of oxygen on October 23. On September, his pCO2 was up to 96.6 and a PO2 of 95. His bicarb had gone from 30 up to 47, so this acute worsening happened while he was under our noses. His pCO2 eventually went up to 117 and has been running above 55 the entire admission. The patient does not have a noninvasive device such as the Trilogy or Astral at home. He has been followed by cardiothoracic team in [place] and I did speak with the nurse coordinator, Krystian Kaba, , who explained how the patient at this point is not a candidate for lung reduction surgery, but is being followed by the cardiothoracic surgeon, Dr. Brenna Nelson. The patient is currently on Trelegy and DuoNeb at home. He does have a portable oxygen concentrator. His shuttler was Dr. Brayden Wallis, but the last visit with that physician was in November of 2018. On September, the patient did deteriorate and was actually transferred to [place], initially was admitted at [facility] with the . So after transfer here to our ICU, he was managed by the manager of operations and today was downgraded to IMU. I was consulted to see him to continue management. The patient is alert, able to respond, but he does have some difficulty to tolerate the BiPAP for prolonged episodes of time, but he is interested in having a Trilogy device to use at home. He has significant hyponatremia with hypo-osmolality, which has been improving with holding his diuretic and providing saline. His sodium is now up to 130. It has been as low as 123. He had a CTA on August 24 showing no pulmonary embolus, hyperinflation, severe emphysema, mucus plugging in the lower lobes with mild bronchial wall thickening in the dependent areas. Influenza screen is negative as well as his blood cultures. He has required some Precedex in order to tolerate the BiPAP, but currently he is awake and using it willingly. His O2 need is down to 30%. ALLERGIES: NO RECORDED DRUG ALLERGIES. MEDICATIONS: His home medications included: 1. Trelegy 1 puff daily. 2. DuoNeb 3 or 4 times a day as needed for shortness of breath. 3. Cefdinir 300 mg b.i.d. 4. Albuterol 2 puffs q.6 hours p.r.n., shortness of breath. 5. Celecoxib 200 mg daily. 6. Furosemide 40 mg a day. 7. Lisinopril/hydrochlorothiazide half tablet daily. 8. Lovastatin 20 mg a day. 9. Omeprazole 20 mg a day. 10. Sildenafil 20 mg t.i.d. for pulmonary hypertension. 11. Zolpidem 10 mg daily. PAST MEDICAL HISTORY: 1. End-stage COPD with evaluation for lung volume reduction surgery, most recently was not a candidate, although he has been in cardiopulmonary rehab with increasing exercise tolerance. He is under evaluation by Dr. Brenna Nelson in [place], [place]. 2. Oxygen use intermittently for the last 2 years. The family says that he uses it as needed, but it is probably oxygen with exertion, as he does have a portabl
[2019-11-01] MEDS: DORNASE ALFA INH SOLN 1 MG/ML 2.5 ML AMP 2.5 MG INHALATION ×2 (08:18→20:28)
[2019-11-01] MEDS: PANTOPRAZOLE 40 MG TABLET PO (08:55)
[2019-11-01] MEDS: SILDENAFIL CITRATE 20 MG TABLET PO ×3 (08:55→18:02)
[2019-11-01] MEDS: LOVASTATIN 20 MG TABLET PO (08:55)
--- NOTE | 2019-11-01 08:55 | PM.IMPN ---
Progress Note: A&P Assessment and Plan (1) Acute and chronic respiratory failure: Qualifiers: Respiratory failure complication: hypercapnia Qualified Code(s): J96.22 - Acute and chronic respiratory failure with hypercapnia Code(s): J96.20 - Acute and chronic respiratory failure, unspecified whether with hypoxia or hypercapnia Status: Acute Assessment and Plan: Hypercapnea improving Seems to be a good Trilogy candidate, pending receipt PCO2 down from 103 at admission to 69 on 10/31 To IMU 10/30 To medical floor 10/31 (2) Acute exacerbation of chronic obstructive pulmonary disease: Code(s): J44.1 - Chronic obstructive pulmonary disease with (acute) exacerbation Status: Acute Assessment and Plan: Continue BiPAP, updrafts, steroids, and antibiotics (3) HTN (hypertension): Qualifiers: Hypertension type: essential hypertension Qualified Code(s): I10 - Essential (primary) hypertension Code(s): I10 - Essential (primary) hypertension Status: Chronic Assessment and Plan: ACEI and diuretic on hold (4) CHF (congestive heart failure): Qualifiers: Heart failure type: diastolic Heart failure chronicity: chronic Qualified Code(s): I50.32 - Chronic diastolic (congestive) heart failure Code(s): I50.9 - Heart failure, unspecified Status: Acute Assessment and Plan: EF 55%. (5) Hyponatremia: Code(s): E87.1 - Hypo-osmolality and hyponatremia Status: Acute Assessment and Plan: Improved with holding diuretic and hydration with saline 10/29 128, 10/30 130, 10/31 129 (6) Pulmonary hypertension: Code(s): I27.20 - Pulmonary hypertension, unspecified Status: Acute Assessment and Plan: Continue sildenafil Subjective Date/time seen: 11/01/19 08:55 Interval history: Feels better. Eating well. ROTHMAN with minimal exertion. Tolerates BiPAP. Uses it while sleeping and intermittently throughout the day, though less today than previously. Denied pain. Review of Systems Review of Systems: All systems reviewed & are unremarkable except as noted in HPI and below Exam Narrative: Exam Narrative: HEENT: EOMI, PERRL, pharyngeal mucosa pink and intact NECK: No JVD, adenopathy, or thyromegaly CHEST: Increased APD. Diminished BS throughout HEART: NL S1/S2, regular, no murmur ABDOMEN: BS+, soft, nontender, no mass, no bruits EXTREMITIES: No cyanosis, edema, or clubbing NEUROLOGIC: CN intact and symmetric to inspection. MUSCULOSKELETAL: Tone and strength symmetric. PSYCH: Alert. Oriented to person, place, and time. Objective Data Vital Signs Vital Signs: Vital Signs - 24 hr 10/31/19 09:16 10/31/19 09:20 10/31/19 09:23 Temperature Pulse Rate 112 H 114 H Respiratory Rate 20 28 H Blood Pressure Pulse Oximetry 97 10/31/19 10:00 10/31/19 12:00 10/31/19 14:38 Temperature 97.3 F L Pulse Rate 106 H 111 H 103 H Respiratory Rate 23 H Blood Pressure 160/62 H Pulse Oximetry 100 10/31/19 15:02 10/31/19 15:03 10/31/19 15:09 Temperature Pulse Rate 105 H 105 H 108 H Respiratory Rate 21 H 21 H 22 H Blood Pressure Pulse Oximetry 97 10/31/19 16:00 10/31/19 16:04 10/31/19 18:01 Temperature 97.6 F Pulse Rate 116 H 109 H 132 H Respiratory Rate 23 H Blood Pressure 148/64 H Pulse Oximetry 100 10/31/19 20:00 10/31/19 20:30 10/31/19 20:40 Temperature 97.6 F Pulse Rate 104 H 94 91 Respiratory Rate 26 H 30 H 30 H Blood Pressure 144/66 H Pulse Oximetry 95 10/31/19 21:01 10/31/19 22:00 11/01/19 00:00 Temperature 97.6 F Pulse Rate 102 H 73 109 H Respiratory Rate 22 H 27 H Blood Pressure 116/62 Pulse Oximetry 98 98 11/01/19 01:40 11/01/19 01:50 11/01/19 01:52 Temperature Pulse Rate 106 H 95 98 Respiratory Rate 17 24 H 17 Blood Pressure Pulse Oximetry 98 11/01/19 02:00 11/01/19 04:00 11/01/19 05:12 Temperature 97.9 F
[2019-11-01] MEDS: ENOXAPARIN 40 MG/0.4 ML SYRINGE SUB-Q (08:56)
[2019-11-01] MEDS: ASPIRIN 325 MG TABLET PO (08:56)
[2019-11-01] MEDS: SODIUM CHLORIDE NASAL GEL 14.1 GM 1 APPLIC NASAL ×2 (08:56→18:02)
--- NOTE | 2019-11-01 10:16 | PC.NURSE ---
This patient, Taz Ambrocio, was transferred to [facility] on 11/01/19 at 0945. Personal belongings sent with patient. Report given to Francia PEÑA. Appropriate documentation sent with patient.
--- NOTE | 2019-11-01 11:57 | PC.NURSE ---
This patient, Taz Ambrocio, was received from [ICU] on 11/01/19 at 1000. Personal belongings list checked and signed. Patient/family oriented to unit policies and routines
[2019-11-01] MEDS: predniSONE 20 MG TABLET 60 MG PO (12:22)
[2019-11-01 12:55] LABS: Glucose Point of Care 140 (65-105)
--- NOTE | 2019-11-01 15:20 | PM.PNPUL ---
Progress Note: A&P Assessment and Plan (1) Acute exacerbation of chronic obstructive pulmonary disease: Code(s): J44.1 - Chronic obstructive pulmonary disease with (acute) exacerbation Status: Acute Assessment and Plan: - agree with Dr. Toth, he would do best from switching to all nebulized therapy due to poor lung function. - would suggest Lonhala Magnair 25 mcg Nebulized Q12h upon discharge - also Brovana 15 mcg Q12h upon discharge - Pulmicort 0.5 mg Nebulzed Q12h - Albuterol 2.5 mg Q6h PRN (2) Chronic hypercapnic respiratory failure: Code(s): J96.12 - Chronic respiratory failure with hypercapnia Status: Acute Assessment and Plan: - agree with home NIV such as Trelegy - should be setup to reflect current inpatient settings and would be best for patient to try it inhouse before discharge. - PT/OT Time Spent With Patient Time with patient: 15 - 25 minutes Subjective Date/time seen: 11/01/19 15:20 Interval history: Doing better. transferred to medical [facility] from ICU today. He does not like the BIPAP mask that is currently availble to him in the hospital. His current settings are 14/6, back up rate of 10 and 30% FiO2 with blood gas appearing at baseline for him. Exam Const: General: comfortable and no acute distress HENMT: Mouth: Yes moist mucous membranes Neck: Neck: supple and no JVD Resp: Effort & Inspection: normal respiratory effort Auscultation: no crackles, no rales, no rhonchi, no wheezes and diminished lung sounds Cardio: Rate: regular rate and not tachycardic Rhythm: regular rhythm Heart sounds: no gallops, no murmurs and no rubs GI: Auscultation: normal bowel sounds Skin: General skin exam: normal color and no rashes or lesions noted Neuro: Speech: normal speech Extrem: General: normal to inspection, no edema and no pedal edema Psych: Mental Status: mental status grossly normal Affect: normal affect Objective Data Vital Signs Vital Signs: Vital Signs - 24 hr 10/31/19 16:00 10/31/19 16:04 10/31/19 18:01 Temperature 36.4 C Pulse Rate 116 H 109 H 132 H Respiratory Rate 23 H Blood Pressure 148/64 H Pulse Oximetry 100 10/31/19 20:00 10/31/19 20:30 10/31/19 20:40 Temperature 36.4 C Pulse Rate 104 H 94 91 Respiratory Rate 26 H 30 H 30 H Blood Pressure 144/66 H Pulse Oximetry 95 10/31/19 21:01 10/31/19 22:00 11/01/19 00:00 Temperature 36.4 C Pulse Rate 102 H 73 109 H Respiratory Rate 22 H 27 H Blood Pressure 116/62 Pulse Oximetry 98 98 11/01/19 01:40 11/01/19 01:50 11/01/19 01:52 Temperature Pulse Rate 106 H 95 98 Respiratory Rate 17 24 H 17 Blood Pressure Pulse Oximetry 98 11/01/19 02:00 11/01/19 04:00 11/01/19 05:12 Temperature 36.6 C Pulse Rate 82 107 H 101 H Respiratory Rate 24 H 22 H Blood Pressure 128/54 L Pulse Oximetry 94 95 11/01/19 05:53 11/01/19 08:00 11/01/19 08:10 Temperature 37.1 C Pulse Rate 75 121 H 95 Respiratory Rate 21 H 20 Blood Pressure 139/75 Pulse Oximetry 100 95 11/01/19 08:20 Temperature Pulse Rate 96 Respiratory Rate 20 Blood Pressure Pulse Oximetry Intake/Output Intake/Output: Intake & Output 10/29/19 10/30/19 10/31/19 11/01/19 23:59 23:59 23:59 23:59 Intake Total 3250 1530 600 350 Output Total 1625 1575 1325 800 Balance 1625 -45 -725 -450 Meds/Results Medications: Active Medications Generic Name Dose Route Start Last Admin Trade Name Freq PRN Reason Stop Dose Admin Al Hydrox/Mg Hydrox/Simethicone 30 ml 10/28/19 12:05 Mylanta PO Q6H PRN Indigestion Albuterol 2.5 mg 10/27/19 14:00 11/01/19 08:17 Albuterol Sulf Neb 2.5mg/0.5ml INHALATION 2.5 mg Q6HRT LISA Administration Aspirin 325 mg 10/28/19 08:00 11/01/19 08:56 Aspirin PO 325 mg DAILY@0800 LISA Administration Dextrose 12.5 gm 10/27/19 13:57 Dextrose 50% Syringe IV PUSH PRN PRN Hypoglycemia Protocol Maricel
--- NOTE | 2019-11-01 16:04 | PCOTNOTE ---
Attempted to see patient this p.m. Unable to see patient at this time due to patient participating in skilled PT session.
[2019-11-01 18:18] LABS: Glucose Point of Care 116 (65-105)
[2019-11-01] MEDS: MELATONIN 5 MG TABLET PO (21:40)
[2019-11-02] VITALS (12 sets, daily range): BP systolic 157–168; BP diastolic 50–54; PULSE 90–120; RESP 18–24; TEMP 36.1–36.6; O2SAT 91–100
[2019-11-02 01:13] LABS: Glucose Point of Care 137 (65-105)
[2019-11-02] MEDS: IPRATROPIUM BR 0.02% INH SOLN 0.5 MG/2.5 ML VIAL INHALATION ×4 (04:00→21:38)
[2019-11-02] MEDS: ALBUTEROL SULFATE NEB 2.5 MG/0.5 ML INH INHALATION ×4 (04:00→21:38)
[2019-11-02 06:24] LABS: Hematocrit 37.9 % (42.0-52.0); Hemoglobin 12.3 g/dL (14.0-18.0); Mean Corpuscular HGB Conc 32.5 g/dl (32-36); Mean Corpuscular Hemoglobin 31.4 pg (26-34); Mean Corpuscular Volume 96.7 fl (80-100); Mean Platelet Volume 9.9 fl (7.4-10.4); Platelet Count Result 203 k/mm3 (150-375); Red Blood Count 3.92 M/mm3 (4.6-6.20); Red Cell Distribution Width 11.9 % (11.5-14.5); White Blood Count 10.1 K/mm3 (4.5-10.0)
[2019-11-02 06:36] LABS: Glucose Point of Care 133 (65-105)
[2019-11-02 06:44] LABS: Blood Urea Nitrogen 26 mg/dL (9-20); Calcium 8.4 mg/dL (8.4-10.2); Carbon Dioxide > 40 mmol/L (22-30); Chloride 83 mmol/L (98-107); Estimated CRCL calculation 92 ml/min; Estimated Glomerular Filt Rate > 60; Glucose 139 mg/dL (75-110); Potassium 4.7 mmol/L (3.4-5.0); Sodium 128 mmol/L (137-145)
[2019-11-02 07:24] LABS: Alveolar/Arterial O2 Gradient 31.4 mmHg; Base Excess ABG 11.9 mEq/l (+/-2.0); Fractional Inspired Oxygen 28 %; HCO3 ABG 41.1 mEq/l (22.0-26.0); Oxygen Content ABG 18.5 %vol (16.0-22.0); Oxygen Saturation ABG 94.1 % (95.0-100.0); PO2 FiO2 Ratio Arterial Blood 2.75 %; pH ABG 7.344 (7.350-7.450)
[2019-11-02 07:25] LABS: PCO2 ABG 77.3 mmHg (35.0-45.0)
[2019-11-02 07:26] LABS: Device NASAL CANNULA; Site Drawn RIGHT BRACHIAL
[2019-11-02] MEDS: DORNASE ALFA INH SOLN 1 MG/ML 2.5 ML AMP 2.5 MG INHALATION ×2 (07:31→21:38)
[2019-11-02] MEDS: SILDENAFIL CITRATE 20 MG TABLET PO ×2 (08:07→13:25)
[2019-11-02] MEDS: predniSONE 20 MG TABLET 60 MG PO (08:07)
[2019-11-02] MEDS: LOVASTATIN 20 MG TABLET PO (08:07)
[2019-11-02] MEDS: ASPIRIN 325 MG TABLET PO (08:07)
[2019-11-02] MEDS: ENOXAPARIN 40 MG/0.4 ML SYRINGE SUB-Q (08:07)
[2019-11-02] MEDS: PANTOPRAZOLE 40 MG TABLET PO (08:07)
[2019-11-02] MEDS: SODIUM CHLORIDE NASAL GEL 14.1 GM 1 APPLIC NASAL ×2 (08:08→17:43)
[2019-11-02] MEDS: lisinopriL 10 MG TABLET PO (08:56)
[2019-11-02] MEDS: BUDESONIDE RESPULE NEB 0.5 MG/2 ML AMP INHALATION ×2 (11:51→21:38)
--- NOTE | 2019-11-02 12:06 | PCNWS ---
Weekly nutritional screen. Patient is tolerating current diet with adequate intake. No weight loss reported. No nutritional needs at this time.
--- NOTE | 2019-11-02 13:32 | PM.PNPUL ---
Progress Note: A&P Assessment and Plan (1) Acute exacerbation of chronic obstructive pulmonary disease: Code(s): J44.1 - Chronic obstructive pulmonary disease with (acute) exacerbation Status: Acute Assessment and Plan: - agree with Dr. Toth, he would do best from switching to all nebulized therapy due to poor lung function. - would suggest Lonhala Magnair 25 mcg Nebulized Q12h upon discharge - also Brovana 15 mcg Q12h upon discharge - Pulmicort 0.5 mg Nebulzed Q12h - Albuterol 2.5 mg Q6h PRN - d/c prednisone today (2) Chronic hypercapnic respiratory failure: Code(s): J96.12 - Chronic respiratory failure with hypercapnia Status: Acute Assessment and Plan: - agree with home NIV such as Trilogy - should be setup to reflect current inpatient settings and would be best for patient to try it inhouse before discharge. 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 He is having trouble falling and staying asleep. I asked him about Revatio (Sildenifil ) and he says it was started in [place] in an effort to bring down his pulmonary pressures before Lung Volume Reduction Surgery. The problem is phosdiasterase inhibitors are not indicated in pulmonary hypertension Group 3 and may sometime make symptoms worse. Review of Systems Review of Systems: All systems reviewed & are unremarkable except as noted in HPI and below Exam Const: General: comfortable and no acute distress HENMT: Mouth: Yes moist mucous membranes Neck: Neck: supple and no JVD Resp: Effort & Inspection: normal respiratory effort Auscultation: no crackles, no rales, no rhonchi, no wheezes and diminished lung sounds Cardio: Rate: regular rate and not tachycardic Rhythm: regular rhythm Heart sounds: no gallops, no murmurs and no rubs GI: Auscultation: normal bowel sounds Skin: General skin exam: normal color and no rashes or lesions noted Neuro: Speech: normal speech Extrem: General: normal to inspection, no edema and no pedal edema Psych: Mental Status: mental status grossly normal Affect: normal affect Objective Data Vital Signs Vital Signs: Vital Signs - 24 hr 11/01/19 16:29 11/01/19 20:29 11/01/19 20:40 Temperature 36.2 C L Pulse Rate 128 H 89 91 Respiratory Rate 16 18 18 Blood Pressure 144/53 H Pulse Oximetry 94 95 11/01/19 22:00 11/02/19 04:00 11/02/19 04:10 Temperature 36.7 C Pulse Rate 96 90 90 Respiratory Rate 20 18 18 Blood Pressure 148/61 H Pulse Oximetry 98 11/02/19 06:00 11/02/19 07:18 11/02/19 07:31 Temperature 36.6 C Pulse Rate 96 120 H 120 H Respiratory Rate 20 24 H 24 H Blood Pressure 167/50 H Pulse Oximetry 100 91 11/02/19 11:52 Temperature Pulse Rate 96 Respiratory Rate 24 H Blood Pressure Pulse Oximetry Intake/Output Intake/Output: Intake & Output 10/30/19 10/31/19 11/01/19 11/02/19 23:59 23:59 23:59 23:59 Intake Total 8718 052 8812 640 Output Total 1575 1325 800 Balance -45 -725 820 640 Meds/Results Medications: Active Medications Generic Name Dose Route Start Last Admin Trade Name Freq PRN Reason Stop Dose Admin Al Hydrox/Mg Hydrox/Simethicone 30 ml 10/28/19 12:05 Mylanta PO Q6H PRN Indigestion Albuterol 2.5 mg 10/27/19 14:00 11/02/19 07:17 Albuterol Sulf Neb 2.5mg/0.5ml INHALATION 2.5 mg Q6HRT LISA Administration Aspirin 325 mg 10/28/19 08:00 11/02/19 08:07 Aspirin PO 325 mg DAILY@0800 LISA Administration Budesonide 0.5 mg 11/02/19 09:30 03
[2019-11-02 13:52] LABS: Glucose Point of Care 186 (65-105)
--- NOTE | 2019-11-02 14:48 | PM.IMPN ---
Progress Note: A&P Assessment and Plan (1) Acute and chronic respiratory failure: Qualifiers: Respiratory failure complication: hypercapnia Qualified Code(s): J96.22 - Acute and chronic respiratory failure with hypercapnia Code(s): J96.20 - Acute and chronic respiratory failure, unspecified whether with hypoxia or hypercapnia Status: Acute Assessment and Plan: Hypercapnea improving Seems to be a good Trilogy candidate, pending receipt PCO2 down from 116 at admission to 77 on 11/01 To IMU 10/30 To medical floor 10/31 (2) Acute exacerbation of chronic obstructive pulmonary disease: Code(s): J44.1 - Chronic obstructive pulmonary disease with (acute) exacerbation Status: Acute Assessment and Plan: Continue BiPAP, updrafts, steroids, and antibiotics (3) HTN (hypertension): Qualifiers: Hypertension type: essential hypertension Qualified Code(s): I10 - Essential (primary) hypertension Code(s): I10 - Essential (primary) hypertension Status: Chronic Assessment and Plan: ACEI resumed Diuretic on hold (4) CHF (congestive heart failure): Qualifiers: Heart failure chronicity: chronic Heart failure type: diastolic Qualified Code(s): I50.32 - Chronic diastolic (congestive) heart failure Code(s): I50.9 - Heart failure, unspecified Status: Acute Assessment and Plan: EF 55%. (5) Hyponatremia: Code(s): E87.1 - Hypo-osmolality and hyponatremia Status: Acute Assessment and Plan: Improved with holding diuretic and hydration with saline 3/ 128, 3/4 130, 3/ 129, /6 128 (6) Pulmonary hypertension: Code(s): I27.20 - Pulmonary hypertension, unspecified Status: Acute Assessment and Plan: D/c sildenafil per pulmonary recommendations Subjective Date/time seen: 11/02/19 14:48 Interval history: Moving around better with oxygen. Bathed and shaved. Eating well. ROTHMAN with minimal exertion. Tolerates BiPAP. Uses it while sleeping and intermittently throughout the day. Awaiting Trilogy. Review of Systems Review of Systems: All systems reviewed & are unremarkable except as noted in HPI and below Exam Narrative: Exam Narrative: HEENT: EOMI, PERRL, pharyngeal mucosa pink and intact NECK: No JVD, adenopathy, or thyromegaly CHEST: Increased APD. Diminished BS throughout HEART: NL S1/S2, regular, no murmur ABDOMEN: BS+, soft, nontender, no mass, no bruits EXTREMITIES: No cyanosis, edema, or clubbing NEUROLOGIC: CN intact and symmetric to inspection. MUSCULOSKELETAL: Tone and strength symmetric. PSYCH: Alert. Oriented to person, place, and time. Objective Data Vital Signs Vital Signs: Vital Signs - 24 hr 11/01/19 16:29 11/01/19 20:29 11/01/19 20:40 Temperature 97.2 F L Pulse Rate 128 H 89 91 Respiratory Rate 16 18 18 Blood Pressure 144/53 H Pulse Oximetry 94 95 11/01/19 22:00 11/02/19 04:00 11/02/19 04:10 Temperature 98.0 F Pulse Rate 96 90 90 Respiratory Rate 20 18 18 Blood Pressure 148/61 H Pulse Oximetry 98 11/02/19 06:00 11/02/19 07:18 11/02/19 07:31 Temperature 97.9 F Pulse Rate 96 120 H 120 H Respiratory Rate 20 24 H 24 H Blood Pressure 167/50 H Pulse Oximetry 100 91 11/02/19 11:52 11/02/19 14:00 11/02/19 14:04 Temperature 97.7 F Pulse Rate 96 117 H 110 H Respiratory Rate 24 H 18 20 Blood Pressure 168/54 H Pulse Oximetry 96 11/02/19 14:11 Temperature Pulse Rate 104 H Respiratory Rate 20 Blood Pressure Pulse Oximetry Intake/Output Intake/Output: Intake & Output 10/30/19 10/31/19 11/01/19 11/02/19 23:59 23:59 23:59 23:59 Intake Total 7715 821 9346 1120 Output Total 1575 1325 800 Balance -45 -301 593 0390 Meds/Results Medications: Active Medications Generic Name Dose Route Start Last Admin Trade Name Freq PRN Reason Stop Dose Admin Al Hydrox/Mg Hydrox/Simethicone 30 ml 10/28/19 12:05 Shealanta
--- NOTE | 2019-11-02 16:01 | PCRCNOTE ---
HOME TRILOGY UNIT SET UP IS BEING ARRANGED WITH [facility]. APPROVAL IS IN PROCESS.
[2019-11-02 18:52] LABS: Glucose Point of Care 169 (65-105)
[2019-11-03 00:24] LABS: Glucose Point of Care 106 (65-105)
[2019-11-03 00:24] LABS: Glucose Point of Care 105 (65-105)
[2019-11-03] MEDS: ALBUTEROL SULFATE NEB 2.5 MG/0.5 ML INH INHALATION ×2 (02:16→07:44)
[2019-11-03 02:17] VITALS: PULSE 92; RESP 18
[2019-11-03] MEDS: IPRATROPIUM BR 0.02% INH SOLN 0.5 MG/2.5 ML VIAL INHALATION ×2 (02:17→07:44)
[2019-11-03 02:24] VITALS: PULSE 93; RESP 18
[2019-11-03 06:00] VITALS: BP 158/56; PULSE 103; RESP 22; TEMP 36.6; O2SAT 95
[2019-11-03 07:00] LABS: Glucose Point of Care 117 (65-105)
[2019-11-03 07:11] LABS: Blood Urea Nitrogen 22 mg/dL (9-20); Calcium 8.7 mg/dL (8.4-10.2); Carbon Dioxide > 40 mmol/L (22-30); Chloride 83 mmol/L (98-107); Estimated CRCL calculation 78 ml/min; Estimated Glomerular Filt Rate > 60; Glucose 100 mg/dL (75-110); Potassium 4.2 mmol/L (3.4-5.0); Sodium 129 mmol/L (137-145)
[2019-11-03 07:44] VITALS: PULSE 69; RESP 18
[2019-11-03] MEDS: BUDESONIDE RESPULE NEB 0.5 MG/2 ML AMP INHALATION (07:44)
[2019-11-03] MEDS: DORNASE ALFA INH SOLN 1 MG/ML 2.5 ML AMP 2.5 MG INHALATION (07:49)
[2019-11-03] MEDS: ENOXAPARIN 40 MG/0.4 ML SYRINGE SUB-Q (08:50)
[2019-11-03] MEDS: ASPIRIN 325 MG TABLET PO (08:50)
--- NOTE | 2019-11-03 08:50 | PM.PNPUL ---
Progress Note: A&P Assessment and Plan (1) Acute exacerbation of chronic obstructive pulmonary disease: Code(s): J44.1 - Chronic obstructive pulmonary disease with (acute) exacerbation Status: Acute Assessment and Plan: - agree with Dr. Toth, he would do best from switching to all nebulized therapy due to poor lung function. - would suggest Lonhala Magnair 25 mcg Nebulized Q12h upon discharge - also Brovana 15 mcg Q12h upon discharge - Pulmicort 0.5 mg Nebulzed Q12h - Albuterol 2.5 mg Q6h PRN - Can discharge home today from pulmonary point of view (2) Chronic hypercapnic respiratory failure: Code(s): J96.12 - Chronic respiratory failure with hypercapnia Status: Acute Assessment and Plan: - agree with home NIV such as Trilogy - should be setup to reflect current inpatient settings and would be best for patient to try it inhouse before discharge. 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 Would like to go home. Review of Systems Review of Systems: All systems reviewed & are unremarkable except as noted in HPI and below Exam Const: General: comfortable and no acute distress HENMT: Mouth: Yes moist mucous membranes Neck: Neck: supple and no JVD Resp: Effort & Inspection: normal respiratory effort Auscultation: no crackles, no rales, no rhonchi, no wheezes and diminished lung sounds Cardio: Rate: regular rate and not tachycardic Rhythm: regular rhythm Heart sounds: no gallops, no murmurs and no rubs GI: Auscultation: normal bowel sounds Skin: General skin exam: normal color and no rashes or lesions noted Neuro: Speech: normal speech Extrem: General: normal to inspection, no edema and no pedal edema Psych: Mental Status: mental status grossly normal Affect: normal affect Objective Data Vital Signs Vital Signs: Vital Signs - 24 hr 11/02/19 11:52 11/02/19 14:00 11/02/19 14:04 Temperature 36.5 C Pulse Rate 96 117 H 110 H Respiratory Rate 24 H 18 20 Blood Pressure 168/54 H Pulse Oximetry 96 11/02/19 14:11 11/02/19 21:38 11/02/19 22:00 Temperature 36.1 C L Pulse Rate 104 H 99 92 Respiratory Rate 20 18 20 Blood Pressure 157/53 H Pulse Oximetry 97 97 11/02/19 22:01 11/03/19 02:17 11/03/19 02:24 Temperature Pulse Rate 97 92 93 Respiratory Rate 18 18 18 Blood Pressure Pulse Oximetry 11/03/19 06:00 11/03/19 07:44 Temperature 36.6 C Pulse Rate 103 H 69 Respiratory Rate 22 H 18 Blood Pressure 158/56 H Pulse Oximetry 95 Intake/Output Intake/Output: Intake & Output 10/31/19 11/01/19 11/02/19 11/03/19 23:59 23:59 23:59 23:59 Intake Total 600 1620 1860 560 Output Total 1325 800 500 300 Balance -218 931 9780 260 Meds/Results Medications: Active Medications Generic Name Dose Route Start Last Admin Trade Name Freq PRN Reason Stop Dose Admin Al Hydrox/Mg Hydrox/Simethicone 30 ml 10/28/19 12:05 Mylanta PO Q6H PRN Indigestion Albuterol 2.5 mg 10/27/19 14:00 11/03/19 07:44 Albuterol Sulf Neb 2.5mg/0.5ml INHALATION 2.5 mg Q6HRT LISA Administration Aspirin 325 mg 10/28/19 08:00 11/02/19 08:07 Aspirin PO 325 mg DAILY@0800 LISA Administration Budesonide 0.5 mg 11/02/19 09:30 11/03/19 07:44 Pulmicort Respule Neb INHALATION 0.5 mg Q12HRT LISA Administration Dextrose 12.5 gm 10/27/19 13:57 Dextrose 50% Syringe IV PUSH PRN PRN Hypoglycemia Protocol Dornase John 2.5 mg 10/31/19 20:00 11/03/19 07:49 Pulmozyme INHALATION 2.5 mg Q12HRT LISA Administration Enoxaparin Sodium 40 mg
[2019-11-03] MEDS: LOVASTATIN 20 MG TABLET PO (08:51)
[2019-11-03] MEDS: PANTOPRAZOLE 40 MG TABLET PO (08:51)
[2019-11-03] MEDS: SODIUM CHLORIDE NASAL GEL 14.1 GM 1 APPLIC NASAL (08:51)
[2019-11-03] MEDS: lisinopriL 10 MG TABLET PO ×2 (08:52→12:48)
--- NOTE | 2019-11-03 11:07 | PM.DS ---
DS: Diagnosis Admitting Diagnosis Admitting Diagnosis: Acute and chronic respiratory failure, unspecified whether with hypoxia or hypercapnia Discharge Diagnosis (1) Acute and chronic respiratory failure: Qualifiers: Respiratory failure complication: hypercapnia Qualified Code(s): J96.22 - Acute and chronic respiratory failure with hypercapnia Code(s): J96.20 - Acute and chronic respiratory failure, unspecified whether with hypoxia or hypercapnia Status: Acute Assessment and Plan: Hypercapnea improving Seems to be a good Trilogy candidate, pending receipt PCO2 down from 116 at admission to 77 on 11/01 To IMU 10/30 To medical floor 10/31 Home with 11/02 (2) Acute exacerbation of chronic obstructive pulmonary disease: Code(s): J44.1 - Chronic obstructive pulmonary disease with (acute) exacerbation Status: Acute Assessment and Plan: Continued BiPAP while sleeping and prn and to get Trilogy at home soon; updrafts, steroids, and antibiotics (latter completed in hospital) (3) HTN (hypertension): Qualifiers: Hypertension type: essential hypertension Qualified Code(s): I10 - Essential (primary) hypertension Code(s): I10 - Essential (primary) hypertension Status: Chronic Assessment and Plan: ACEI resumed Diuretic on hold (4) CHF (congestive heart failure): Qualifiers: Heart failure chronicity: chronic Heart failure type: diastolic Qualified Code(s): I50.32 - Chronic diastolic (congestive) heart failure Code(s): I50.9 - Heart failure, unspecified Status: Acute Assessment and Plan: EF 55%. (5) Hyponatremia: Code(s): E87.1 - Hypo-osmolality and hyponatremia Status: Acute Assessment and Plan: Improved with holding diuretic and hydration with saline 10/29 128, 3 130, 10/31 129, 11/01 128, 11/02 129 (6) Pulmonary hypertension: Code(s): I27.20 - Pulmonary hypertension, unspecified Status: Acute Assessment and Plan: D/c sildenafil per pulmonary recommendations DS: Summary Hospital Course Reason for hospitalization: Admitted with increasing dyspnea. Hospital Course: Found to have hypercarbic and hypoxic respiratory failure, acute on chronic. Responded well to BiPAP steroids bronchodilators antibiotics. Gradually improved. For data please see problem list. Pulmonary was consulted. Trilogy was requested. It was pending at the time of discharge. The patient wished to go home. He was tolerating moving about with oxygen at 2 liters/minute. Home health was to begin in 2 days. Trilogy settings were to be determined by Dr. Toth. Time Spent with Patient Time attestation: Total time spent providing and/or coordinating discharge services: Exam Narrative: Exam Narrative: HEENT: EOMI, PERRL, pharyngeal mucosa pink and intact NECK: No JVD CHEST: Increased APD. Diminished BS throughout HEART: NL S1/S2, regular, no murmur ABDOMEN: BS+, soft, nontender, no mass, no bruits EXTREMITIES: No cyanosis, edema, or clubbing NEUROLOGIC: CN intact and symmetric to inspection. MUSCULOSKELETAL: Tone and strength symmetric. PSYCH: Alert. Oriented to person, place, and time. DS: Data Data Completed and Pending Labs on day of discharge: Labs from last 24 hours 11/03/19 11/03/19 11/03/19 05:53 05:44 00:16 Sodium 129 L Potassium 4.2 Chloride 83 L Carbon Dioxide > 40 H BUN 22 H Creatinine 0.60 L Estim Creat Clear Calc 78 Estimated GFR > 60 Glucose 100 POC Capillary Glucose 117 H 106 Calcium 8.7 11/02/19 11/02/19 11/02/19 20:24 17:42 13:24 Sodium Potassium Chloride Carbon Dioxide BUN Creatinine Estim Creat Clear Calc Estimated GFR Glucose POC Capillary Glucose 105 169 H 186 H Calcium Discharge Plan Discharge Attending physician on discharge: Fredis Lunsford Consulting providers: Gregory
[2019-11-03] MEDS: FUROSEMIDE 40 MG TABLET PO (12:48)
--- NOTE | 2019-11-03 13:12 | PCOTNOTE ---
Patient refused treatment this session due to being in the process of discharging upon therapist arrival.
== END 2019-11-03 13:45 | disposition home health service (06) | DRG 190 ==
LOC: ANHICU 10-29 17:39 → ANH3MEDSUR 11-02 17:43 → ANHICU 11-07 08:15
PROVIDERS: Family Medicine; Internal Medicine; Admitting Provider Family Medicine; Visit Provider Internal Medicine
DX: J44.1 Chronic obstructive pulmonary disease with (acute) exacerbation (principal); J96.22 Acute and chronic respiratory failure with hypercapnia; J96.21 Acute and chronic respiratory failure with hypoxia; I50.33 Acute on chronic diastolic (congestive) heart failure; E87.1 Hypo-osmolality and hyponatremia; I11.0 Hypertensive heart disease with heart failure; I27.20 Pulmonary hypertension, unspecified; F41.9 Anxiety disorder, unspecified; K21.9 Gastro-esophageal reflux disease without esophagitis; I65.22 Occlusion and stenosis of left carotid artery; E78.5 Hyperlipidemia, unspecified; Z66 Do not resuscitate; Z87.891 Personal history of nicotine dependence
CPT/HCPCS: 36415; 36600; 71045; 80048; 80053; 82375; 82805; 83050; 83735; 85027; 87081; 93306; 94002; 94003; 94640; 94660; 94667; 94668; 97110; 97116; 97161; 97165; 97530; 97535; A9270; J0360; J1650; J1956; J2920; J2930; J3475; J7030; J7512

== ENCOUNTER 2020-02-14 11:42 | Outpatient (CLI) | payer MEDICARE, SELFPAY ==
[2020-02-14 11:51] LABS: Basophils Absolute Auto 0.03 K/mm3 (0.00-0.10); Basophils Percent Auto 0.5 % (0.0-1.0); Eosinophils Absolute Auto 0.14 K/mm3 (0.02-0.50); Eosinophils Percent Auto 2.5 % (1.0-6.0); Hematocrit 43.2 % (37.0-46.0); Hemoglobin 13.4 g/dL (12.4-15.3); Immature Granulocyte Absolute 0.01 K/mm3 (0.00-0.00); Immature Granulocyte Percent A 0.2 % (0.0-0.0); Lymphocytes Absolute Auto 0.79 K/mm3 (1.10-4.50); Lymphocytes Percent Auto 14.1 % (18.0-42.0); Mean Corpuscular Hemoglobin 31.2 pg (27.0-31.0); Mean Corpuscular Volume 100.5 fL (78.0-102.0); Mean Platelet Volume 9.8 fl (8.7-11.0); Monocytes Absolute Auto 0.56 K/mm3 (0.10-0.90); Neutrophils Absolute Auto 4.1 K/mm3 (1.7-7.2); Neutrophils Percent Auto 72.7 % (50.0-70.0); Platelet Count Result 146 K/mm3 (150-420); Red Cell Distribution Width 12.4 % (11.6-14.4); White Blood Count 5.6 K/mm3 (4.8-10.8)
== END 2020-02-14 11:43 | disposition home or self-care (01) ==
LOC: CHSLAB 11:44
PROVIDERS: PCP Internal Medicine; Visit Provider Internal Medicine
DX: D64.0 Hereditary sideroblastic anemia (principal)
CPT/HCPCS: 36415; 85025

== ENCOUNTER 2020-03-18 12:10 | Outpatient (CLI) | payer MEDICARE, SELFPAY | END 2020-03-18 12:11 | disposition home or self-care (01) | PROVIDERS: PCP Internal Medicine; Visit Provider Specialist | DX: C44.612 Basal cell carcinoma of skin of right upper limb, including shoulder (principal) | CPT/HCPCS: 88305 ==

== ENCOUNTER 2021-03-17 13:05 | Outpatient (CLI) | payer OTHER, MEDICARE, SELFPAY | END 2021-03-17 13:06 | disposition home or self-care (01) | LOC: CHSLAB 13:10 | PROVIDERS: PCP Internal Medicine; Visit Provider Specialist | DX: C44.222 Squamous cell carcinoma of skin of right ear and external auricular canal (principal) | CPT/HCPCS: 88305 ==

== ENCOUNTER 2021-04-10 14:19 | Outpatient (CLI) | payer OTHER, MEDICARE, SELFPAY ==
--- NOTE | ~2021-04-10 | MR_ITS ---
EXAMINATION: MR cervical spine wo con DATE: 04/10/2021 15:00 INDICATION: Cervical radiculopathy. TECHNIQUE: Magnetic resonance imaging (MRI) of the cervical spine was performed without intravenous c ontrast. Sequences included sagittal T2-weighted FSE, sagittal STIR FSE, sagittal T1-weighted FSE, ax ial MERGE, and axial T2-weighted FSE. COMPARISON: None FINDINGS: There is 4 degrees dextrocurvature of cervical spine. There is 2 mm anterolisthesis of C4 o n C5 and C7 on T1. There is kyphosis of lower cervical spine. Vertebral body heights are normal. Ther e is moderately decreased disc height at C5-C6 and C7-T1 and severely decreased disc height at C6-C7. The spinal cord signal intensity is normal. The following disc levels are specifically discussed: C2-C3: There is a central extrusion. There is no uncovertebral joint osteoarthritis. There is mild ri ght and moderate left facet joint osteoarthritis. There is no neural foraminal stenosis. There is no central canal stenosis. C3-C4: There is a central protrusion. There is severe left uncovertebral joint osteoarthritis. There is mild right and severe left facet joint osteoarthritis. There is moderate left neural foraminal ankur nosis. There is mild central canal stenosis. C4-C5: There is a central protrusion. There is mild left uncovertebral joint osteoarthritis. There is mild lateral facet joint osteoarthritis. There is mild left neural foraminal stenosis. There is mild central canal stenosis. C5-C6: The disc is bulging. There is severe bilateral uncovertebral joint osteoarthritis. There is no facet joint osteoarthritis. There is mild right and moderate left neural foraminal stenosis. There i s mild central canal stenosis with ventral indentation of the spinal cord. C6-C7: The disc is bulging. There is severe bilateral uncovertebral joint osteoarthritis. There is no facet joint osteoarthritis. There is mild bilateral neural foraminal stenosis. There is mild central canal stenosis. C7-T1: The disc is bulging. There is mild right and severe left uncovertebral joint osteoarthritis. T here is moderate right and severe left facet joint osteoarthritis. There is mild bilateral neural for aminal stenosis. There is mild central canal stenosis. IMPRESSION: 1. Severe cervical spondylosis. Reviewed, dictated and finalized at location A.
== END 2021-04-10 14:20 ==
PROVIDERS: PCP Internal Medicine; Visit Provider Nurse Practitioner Adult Health
DX: M47.23 Other spondylosis with radiculopathy, cervicothoracic region (principal); M48.03 Spinal stenosis, cervicothoracic region
CPT/HCPCS: 72141

== ENCOUNTER 2021-09-23 09:34 | Outpatient (CLI) | payer MEDICARE, SELFPAY ==
[2021-09-23 12:28] LABS: SARS-CoV-2 RNA PCR Positive (Negative)
== END 2021-09-23 09:35 | disposition home or self-care (01) ==
LOC: CHSLAB 09:40
PROVIDERS: PCP Internal Medicine
DX: U07.1 COVID-19 (principal)
CPT/HCPCS: C9803; U0003; U0005

== ENCOUNTER 2022-04-27 15:46 | Outpatient (CLI) | payer OTHER, MEDICARE, SELFPAY | END 2022-04-27 15:47 | disposition home or self-care (01) | LOC: CHSLAB 15:50 | PROVIDERS: PCP Internal Medicine; Visit Provider Specialist | DX: C44.219 Basal cell carcinoma of skin of left ear and external auricular canal (principal); C44.719 Basal cell carcinoma of skin of left lower limb, including hip; C44.612 Basal cell carcinoma of skin of right upper limb, including shoulder | CPT/HCPCS: 88305 ==

== ENCOUNTER 2022-12-09 01:23 | Day surgery (SDC) | payer MEDICARE, SELFPAY ==
--- NOTE | 2022-12-02 09:41 | PC.NURSE ---
Report to the Outpatient Waiting Room, entrance under the green pavilion located off [facility], at time __1000 on date __12/09/22 . Planned Procedure Time: ___1100 . Time changes happen often and if your time is changed the preop area will call you the afternoon before. - You and your visitor will be asked to self-screen and do not enter if you have any COVID symptoms. - Only one visitor is requested with a max of two and NO children visitors are allowed at this time. - The patient visitor may be requested to leave or wait in car when not with patient due to distancing restrictions. - A mask is optional within the hospital at this time. -MAY HAVE A LIGHT BREAKFAST Take the following medications with a SIP of water the morning of surgery: _REGULAR HOME MEDICATIONS_ DO NOT STOP ANY OF YOUR OTHER PRESCRIPTION MEDICATIONS PRIOR TO SURGERY ?EXCEPT THE FOLLOWING Medications to discontinue per physician Date to take last dose Please no make-up, nail frisian, hairspray, perfume, deodorant, or body powder the day of surgery. No jewelry (including any body piercings) or valuables the day of surgery, leave them at home. Please take a shower or bath the night before, or the morning of, surgery with an antibacterial soap. Wear comfortable, loose fitting clothing. Children are encouraged to wear pajamas. - Jewelry must be removed prior to entering the operating room. Rings and piercings that are not removed may be cut off. - The hospital will not accept responsibility for valuables. - Please leave all valuables, including medications, at home the day of surgery. -MAY DRIVE SELF TO/FROM HOSPITAL - BUT A GENERAL OPHTHALMOLOGIST IS RECOMMENDED Follow any additional instructions given to you from your surgeon. If you or anyone in your household have experienced Covid symptoms in the past week, please notify your surgeon or the nurse liaison at the phone number below for possible testing. Telephone instructions given to ____PT and asked if any additional questions and then verbalized understanding. Patient advised to call surgeon office or pre surgery nurse liaison [phone] if any additional questions.
[2022-12-09] VITALS (9 sets, daily range): BP systolic 155–203; BP diastolic 56–92; PULSE 72–78; RESP 16–20; TEMP 36.6; O2SAT 98–100
--- NOTE | 2022-12-09 07:25 | WPDHPUPDATE1 ---
History and Physical Update Update Date/Time: 12/09/22 07:25 History and Physical has been reviewed, including an updated exam of the patient. There are NO changes in the patient's condition. Risks, benefits, and alternatives have been discussed and questions answered. Patient agrees to proceed with procedure.
[2022-12-09] MEDS: LIDO 1%/EPINEPHRINE 1:100,000 50 ML VIAL 30 ML INFILTRATE (10:42)
[2022-12-09] MEDS: BACITRACIN OINTMENT 15 GM TUBE 1 APPLIC TOPICAL (10:42)
--- NOTE | 2022-12-09 11:07 | P.OP_ITS ---
Procedure Note - Detailed Date of Procedure 12/09/22 Pre-op Diagnosis bcca left ear antitragus,bcca left leg Post-op Diagnosis Same Procedure Performed 1 cm excision of arm basal cell carcinoma of the left anterior tragus with frozen section and intermediate repair 2 cm. 2 cm excision of basal cell carcinoma of the left leg with permanent section and intermediate repair 3.2 cm Surgeon Amilcar Emmanuel MD Anesthesia Local Description of Procedure The ulcerated site on the left antitragus and the scaling pigmented site on the left leg were marked in the holding area with his consent. He was taken to the operating room was placed supine on the operating table. The 2 sites were carefully examined and marked for excision. Each was infiltrated with 1% lidocaine with epinephrine. The lesion from the left and tragus was incised around the margin with a couple of mm to spare and we extended the depth through the cartilage. The specimen was marked on the most inferior aspect designated 12 o'clock. The pathologist reported that this was basal cell carcinoma and the margins were free. The site was carefully examined and it appeared that with a little undermining and removal of some additional cartilage I would be able to close this wound without graft.. This was done and the skin closed with a run dulce maria 5 0 nylon suture. At the left leg the ellipse was incised and the specimen taken into subcutaneous tissue and sent for pathology. A suture was placed at the most superior aspect designated 12 o'clock. The wound was undermined a few mm and was easily coapted with intradermal 3-0 Vicryl. The skin was then closed with a running 5 0 nylon, tolerated well. Estimated Blood Loss 2 Tourniquet Time 0 Drains No Packing No Pathology Yes Complications No immediate complications Condition Stable Disposition Same day
== END 2022-12-09 11:21 | disposition home or self-care (01) ==
PROVIDERS: PCP Internal Medicine; Visit Provider Plastic Surgery
PROC: (CPT 11641; principal; 2022-12-09 10:00)
PROC: (CPT 11641; 2022-12-09 10:00)
DX: C44.219 Basal cell carcinoma of skin of left ear and external auricular canal (principal); C44.719 Basal cell carcinoma of skin of left lower limb, including hip
CPT/HCPCS: 11641; 12051; 11602; 12032; 88305; 88331; A9270

== ENCOUNTER 2022-12-10 08:40 | Outpatient (CLI) | payer MEDICARE, SELFPAY ==
[2022-12-10 09:38] LABS: Immature Reticulocyte Fraction 12.4 % (2.0-16.52); Reticulocyte Hemoglobin Conten 33.3 pg (28.0-35.0); Reticulocyte Percent 1.32 % (0.50-1.50); Reticulocytes Absolute 0.05 M/mm3 (0.02-0.1)
[2022-12-10 12:26] LABS: Ferritin 97 ng/mL (26-388); Iron 75 ug/dL (65-175); Vitamin B12 412 pg/mL (193-986)
== END 2022-12-10 08:41 | disposition home or self-care (01) ==
LOC: CHSLAB 08:42
PROVIDERS: PCP Internal Medicine; Visit Provider Internal Medicine
DX: D64.0 Hereditary sideroblastic anemia (principal)
CPT/HCPCS: 36415; 82607; 82728; 83540; 85046

== ENCOUNTER 2023-03-17 12:22 | Outpatient (CLI) | payer OTHER, MEDICARE, SELFPAY ==
[2023-03-17 12:33] LABS: Basophils Absolute Auto 0.04 K/mm3 (0.00-0.10); Basophils Percent Auto 0.5 % (0.0-1.0); Eosinophils Absolute Auto 0.19 K/mm3 (0.02-0.50); Eosinophils Percent Auto 2.4 % (1.0-6.0); Hematocrit 38.2 % (37.0-46.0); Hemoglobin 11.7 g/dL (12.4-15.3); Immature Granulocyte Absolute 0.03 K/mm3 (0.00-0.00); Immature Granulocyte Percent A 0.4 % (0.0-0.0); Lymphocytes Absolute Auto 0.89 K/mm3 (1.10-4.50); Lymphocytes Percent Auto 11.2 % (18.0-42.0); Mean Corpuscular HGB Conc 30.6 g/dL (32.0-36.0); Mean Corpuscular Hemoglobin 30.4 pg (27.0-31.0); Mean Corpuscular Volume 99.2 fL (78.0-102.0); Mean Platelet Volume 10.4 fl (8.7-11.0); Monocytes Absolute Auto 0.73 K/mm3 (0.10-0.90); Monocytes Percent Auto 9.2 % (2.0-11.0); Neutrophils Absolute Auto 6.1 K/mm3 (1.7-7.2); Neutrophils Percent Auto 76.3 % (50.0-70.0); Platelet Count Result 160 K/mm3 (150-420); Red Blood Count 3.85 M/mm3 (4.70-6.10); Red Cell Distribution Width 11.9 % (11.6-14.4); White Blood Count 7.9 K/mm3 (4.8-10.8)
== END 2023-03-17 12:23 | disposition home or self-care (01) ==
PROVIDERS: PCP Internal Medicine; Visit Provider Internal Medicine
DX: D64.9 Anemia, unspecified (principal)
CPT/HCPCS: 36415; 85025